=== PATIENT | female | born 1945 | race Caucasian/White ===

== ENCOUNTER 2022-06-14 10:16 | Outpatient (CLI) | payer MEDICARE, SELFPAY ==
--- NOTE | ~2022-06-14 | XR_ITS ---
EXAMINATION: XR chest 2V DATE: 06/14/2022 10:40 INDICATION: Chronic cough and chest heaviness TECHNIQUE: PA and lateral views of the chest were obtained. COMPARISON: None FINDINGS: Mild biapical pleural-parenchymal scarring. Left paracardial fat pad at the anterior right lung base. There are few small calcified pulmonary nodules in the bilateral lower lung zones consistent with ol d granulomatous disease. No other airspace opacities, pulmonary edema, pleural effusion or pneumothor ax. Heart size is normal. Moderate cervical and thoracic spondylosis. IMPRESSION: 1. No acute cardiopulmonary disease. Reviewed, dictated and finalized at location L.
== END 2022-06-14 10:17 | disposition home or self-care (01) ==
PROVIDERS: PCP Family Medicine; Visit Provider Nurse Practitioner Family
DX: R05.3 Chronic cough (principal)
CPT/HCPCS: 71046

== ENCOUNTER 2022-09-14 08:13 | Outpatient (CLI) | payer MEDICARE, SELFPAY ==
--- NOTE | 2022-09-14 11:14 | WPDPFTINT ---
PFT Procedure Performed PFT Procedure Performed Spirometry with Pre/Post Bronchodilator Plethysmography (Lung Vol) Diffusing Cap (DLCO) Flow Vol Loop PFT Interpretation Lung volumes were measured with the body plethysmography method. Lung volumes are unremarkable. Spirometry showed normal expiratory flow rates and a normal FEV1 to FVC ratio 76%. Following administration of a bronchodilator there was no significant increase in expiratory flow rates. Lung diffusion capacity is within the normal range at 85% predicted. The flow-volume loop is unremarkable. Impression: Spirometry, lung volumes, and lung diffusion capacity all within the normal range
== END 2022-09-14 08:14 | disposition home or self-care (01) ==
PROVIDERS: PCP Family Medicine; Visit Provider Nurse Practitioner Family
DX: R05.3 Chronic cough (principal)
CPT/HCPCS: 94060; 94726; 94729

== ENCOUNTER 2022-12-21 10:05 | Outpatient (CLI) | payer MEDICARE, SELFPAY ==
[2022-12-21 11:17] LABS: Alanine Aminotransferase 27 U/L (6-35); Albumin Level 4.3 g/dL (3.5-5.1); Alkaline Phosphatase 64 U/L (38-126); Anion Gap 5 mmol/L (8-16); Aspartate Amino Transferase 27 U/L (14-36); Bilirubin,Total 0.5 mg/dL (0.2-1.3); Blood Urea Nitrogen 13 mg/dL (7-17); Calcium 9.2 mg/dL (8.4-10.2); Carbon Dioxide 33 mmol/L (22-30); Chloride 101 mmol/L (98-107); Estimated Glomerular Filt Rate 54; Glucose 104 mg/dL (65-110); Potassium 4.3 mmol/L (3.4-5.0); Sodium 139 mmol/L (137-145)
[2022-12-21 11:38] LABS: Vitamin D 25 Hydroxy 68.8 ng/mL
== END 2022-12-21 10:06 | disposition home or self-care (01) ==
LOC: ANHLAB 10:07
PROVIDERS: PCP Family Medicine; Visit Provider Nurse Practitioner Family
DX: E53.8 Deficiency of other specified B group vitamins (principal); E78.2 Mixed hyperlipidemia; R73.09 Other abnormal glucose; Z79.899 Other long term (current) drug therapy; E55.9 Vitamin D deficiency, unspecified
CPT/HCPCS: 36415; 80053; 82306; 82607

== ENCOUNTER 2023-05-07 08:11 | Outpatient (CLI) | payer MEDICARE, SELFPAY ==
--- NOTE | ~2023-05-07 | MM_ITS ---
EXAMINATION: MM screening reed BI w debra HISTORY: Screening mammogram TECHNIQUE: Craniocaudal and mediolateral oblique 3-D tomosynthesis images were obtained and synthetic 2-D images were generated. CAD analysis was submitted and interpreted. COMPARISON: No prior mammogram is available for comparison at this institution. BREAST PARENCHYMAL COMPOSITION: There are scattered areas of fibroglandular density. FINDINGS: There is a biopsy marker on the right; history of prior benign right breast biopsy. Occasional bilateral benign calcifications. There is no evidence of suspicious mass, calcification, o r architectural distortion to suggest malignancy in either breast. IMPRESSION: 1. No mammographic evidence of malignancy. 2. Recommend routine screening mammography in one year. BI-RADS Category 2: Benign finding(s). Reviewed, dictated and finalized at location A. 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
--- NOTE | ~2023-05-07 | DEXA_ITS ---
Bone Density Report Name: MARIIA LOUIS Age: 77 Sex: Female Ethnicity: White Date of : 1945 Indication: postmenopausal; screening for osteoporosis; height loss; prior fracture; Referring Provider: BENTON PABLO Study: Bone densitometry was performed. Exam Date: May 07, 2023 Accession number: [id number] Bone Density: Region BMD T-score Z-score Classification AP Spine(L1-L4) 1.060 0.1 2.6 Normal Femoral Neck (Left) 0.838 -0.1 2.1 Normal Total Hip (Left) 1.094 1.2 3.2 Normal Femoral Neck (Right) 0.839 -0.1 2.1 Normal Total Hip (Right) 1.038 0.8 2.7 Normal Total Hip Mean 1.066 1.0 3.0 Normal World Health Organization criteria for BMD impression classify patients as: Normal (T-score at or above -1.0), Osteopenia (T-score between -1.0 and -2.5), or Osteoporosis (T-score at or below -2.5). 10-year Fracture Risk: FRAX not reported because: All T-scores for Spine Total, Hip Total, Femoral Neck at or above -1.0 Clinical Information Provided by Patient: Has had a low trauma fracture Has used the following medications: Vitamin D, Calcium Patient maximum height was 64 Menopause Age: 50 Drinks caffeinated beverages Onset of menses at age 12 Number of children 5 Impression: The patient has normal bone mass. The patient has risk factors, including: previous fracture. Discussion: LOW RISK OF FRACTURE; BONE DENSITY IS WELL ABOVE THE MINIMUM DESIRABLE LEVEL AND ABOVE AVERAGE FOR AGE AND SEX AT ALL SKELETAL SITES TESTED. This person's bone density is above expected limits for age and sex. This is rarely clinically significant, but should be pursued if there are significant musculoskeletal complaints. The patient should follow a healthful lifestyle (good nutrition with adequate calcium and vitamin D, and appropriate weight-bearing exercise). Follow-Up: Consider repeating this study in 5 years or sooner if there is some new clinical indication. Reported by: ROGERIO on 05/07/2023 8:56:00 AM. Reviewed, dictated and finalized at location A. [facility]
== END 2023-05-07 08:12 | disposition home or self-care (01) ==
PROVIDERS: PCP Family Medicine; Visit Provider Nurse Practitioner Family
DX: Z12.31 Encounter for screening mammogram for malignant neoplasm of breast (principal); Z78.0 Asymptomatic menopausal state
CPT/HCPCS: 77063; 77067; 77080

== ENCOUNTER 2023-08-01 10:30 | Outpatient (CLI) | payer MEDICARE, SELFPAY ==
[2023-08-01 10:53] LABS: Basophils Percent Auto 0.8 % (0.2-1.2); Eosinophils Absolute Auto 0.1 K/mm3 (0-0.3); Eosinophils Percent Auto 2.1 % (0-4.4); Hematocrit 38.8 % (37.0-47.0); Hemoglobin 12.5 g/dL (12.0-15.0); Immature Granulocyte Absolute 0.02 K/mm3 (0.00-0.031); Immature Granulocyte Percent A 0.4 % (0-0.5); Lymphocytes Absolute Auto 1.99 K/mm3 (0.9-3.2); Lymphocytes Percent Auto 38.8 % (18.3-44.2); Mean Corpuscular HGB Conc 32.2 g/dl (32-36); Mean Corpuscular Hemoglobin 29.4 pg (26-34); Mean Corpuscular Volume 91.3 fl (80-100); Mean Platelet Volume 8.8 fl (7.4-10.4); Monocytes Absolute Auto 0.5 K/mm3 (0.1-0.6); Monocytes Percent Auto 9.2 % (2.6-8.5); Neutrophils Absolute Auto 2.5 K/mm3 (1.3-6.7); Neutrophils Percent Auto 48.7 % (45.5-73.1); Platelet Count Result 240 k/mm3 (150-375); Red Blood Count 4.25 M/mm3 (4.2-5.4); Red Cell Distribution Width 13.5 % (11.5-14.5); White Blood Count 5.1 K/mm3 (4.5-10.0)
== END 2023-08-01 10:31 | disposition home or self-care (01) ==
LOC: ANHLAB 10:33
PROVIDERS: PCP Family Medicine; Visit Provider Nurse Practitioner Family
DX: R06.09 Other forms of dyspnea (principal)
CPT/HCPCS: 36415; 85025

== ENCOUNTER 2023-08-19 08:18 | Outpatient (CLI) | payer MEDICARE, SELFPAY ==
--- NOTE | 2023-08-19 08:24 | ECHO_ITS ---
Patient Info Name: Katherine Morgan Age: 77 years : 1945 Gender: Female Ht: 63 in Wt: 186 lbs BSA: 1.97 m2 HR: 65 bpm BP: 139 / 85 mmHg Technical Quality: Good Exam Date: 08/19/2023 8:34 AM Exam Location: Echo Lab Patient Status: Outpatient Admit Date: 08/19/2023 Staff Ordering Physician: Bryce Underwood APRN Cooling Tower Technician: Caridad Rivera RDCS Attending Provider: Bryce Underwood APRN Referring Physician: Kj DALLAS; Exam Type: CA echo doppler color flow Study Info Indications R06.09 - Other forms of dyspnea Complete two-dimensional, color flow and Doppler transthoracic echocardiogram is performed. Strain analysis performed. Summary 1. Complete two-dimensional, color flow and Doppler transthoracic echocardiogram is performed. 2. Left ventricular chamber dimension is normal. 3. Left ventricular systolic function is normal, estimated at 65-70%. 4. The left ventricular diastolic function is grade II diastolic dysfunction. 5. E/e' 12 is mildly elevated. 6. Global longitudinal strain is normal at -18.7%. 7. Left atrial chamber dimension is mildly enlarged. 8. There is mild aortic valve regurgitation. 9. The mitral valve has mildly calcified annulus. 10. There is mild mitral valve regurgitation. 11. No pulmonary hypertension, estimated pulmonary arterial systolic pressure is 33 mmHg. 12. There is trace pulmonic regurgitation. Left Ventricle E/e' 12 is mildly elevated. Global longitudinal strain is normal at -18.7%. Left ventricular chamber dimension is normal. Left ventricular systolic function is normal, estimated at 65-70%. The left ventricular diastolic function is grade II diastolic dysfunction. Right Ventricle Right ventricular systolic function is normal and with normal TAPSE 2.8 cm. Right ventricular chamber dimension is normal. Left Atria Left atrial chamber dimension is mildly enlarged. Right Atria Right atrial chamber dimension is normal. Aortic Valve The aortic valve is trileaflet. There is no aortic valve stenosis. There is mild aortic valve regurgitation. Pulmonic Valve There is trace pulmonic regurgitation. Mitral Valve The mitral valve has mildly calcified annulus. There is no mitral valve stenosis. There is mild mitral valve regurgitation. Tricuspid Valve There is no tricuspid valve regurgitation. No pulmonary hypertension, estimated pulmonary arterial systolic pressure is 33 mmHg. Pericardium/Pleural There is no pericardial effusion. Inferior Vena Cava Normal inferior vena cava with >50% collapse upon inspiration consistent with normal right atrial pressure, 5 mmHg. Aorta The aortic root size at the sinus of Valsalva is normal. Left Ventricular Outflow Tract Name Value Normal LVOT 2D LVOT Diameter 1.9 cm LVOT Doppler LVOT Peak Gradient 4 mmHg LVOT Mean Gradient 2 mmHg LVOT VTI 26 cm LVOT VTI/AV VTI Ratio 0.9 LVOT Stroke Volume 74 ml LVOT CO 4.4 l/min LVOT CI 2.2 l/min/m2 Pulmonic Valve
== END 2023-08-19 08:19 | disposition home or self-care (01) ==
LOC: ANHCARD 08:19
PROVIDERS: PCP Family Medicine; Visit Provider Nurse Practitioner Family
DX: R06.09 Other forms of dyspnea (principal); I51.89 Other ill-defined heart diseases; I34.81 Nonrheumatic mitral (valve) annulus calcification; I34.0 Nonrheumatic mitral (valve) insufficiency
CPT/HCPCS: 93306

== ENCOUNTER 2023-09-18 09:35 | Day surgery (SDC) | payer MEDICARE, SELFPAY ==
[2023-09-05 09:52] VITALS: BMI 32.6
[2023-09-18 10:11] VITALS: BP 132/87; PULSE 70; RESP 18; TEMP 36.6; O2SAT 100; BMI 31.4
[2023-09-18] MEDS: LACTATED RINGERS 1,000 ML 150 ML IV CONT (10:23)
--- NOTE | 2023-09-18 10:27 | WPDHPUPDATE1 ---
History and Physical Update Update Date/Time: 09/18/23 10:27 History and Physical has been reviewed, including an updated exam of the patient. There are NO changes in the patient's condition. Risks, benefits, and alternatives have been discussed and questions answered. Patient agrees to proceed with procedure.
--- NOTE | 2023-09-18 10:59 | WPDANESEPPF ---
Anes - Initial Pre Proc Eval Procedure: Operation Date: 09/18/23 11:30 Proposed Procedures p Esophagogastroduodenoscopy - Sincere Rios MD s Diagnostic Colonoscopy - Sincere Rios MD Date/Time: 09/18/23 10:59 Surgeon: Sincere Rios MD Pre Op Diagnosis: Gerd wo Esophagitis,FM HX.Malignant Neoplasm Diges Patient Data Age: 77 Gender: F Height: 1.61 m Weight: 81.6 kg Last Vital Signs Temp 36.6 C 09/18/23 10:11 Pulse 70 09/18/23 10:11 Resp 18 09/18/23 10:11 BP 132/87 09/18/23 10:11 Pulse Ox 100 09/18/23 10:11 O2 Del Method Room Air 09/18/23 10:11 Allergies Allergy/AdvReac Type Severity Reaction Status Date / Time No Known Allergies Allergy Verified 09/18/23 10:04 Home Medications Medication Instructions Recorded Confirmed Type aspirin 81 mg tablet,delayed 81 mg PO .QD 04/16/22 09/18/23 History release (Adult Low Dose Aspirin) atorvastatin 10 mg tablet 10 mg PO .QD 04/16/22 09/18/23 History escitalopram oxalate 20 mg tablet 20 mg PO .QD 04/16/22 09/18/23 History (Lexapro) meclizine 25 mg tablet 25 mg PO TID PRN dizziness #30 tabs 06/12/22 09/18/23 Rx fluticasone propionate 50 1 spray intranasal DAILY 12/13/22 09/18/23 History mcg/actuation nasal spray,suspension azelastine 137 mcg (0.1 %) nasal 1 spray intranasal Q12H #30 mL 04/05/23 09/18/23 Rx spray aerosol zolpidem 5 mg tablet 5 mg PO QHS #30 tabs 07/22/23 09/18/23 Rx gabapentin 300 mg capsule 300 mg PO QHS #90 caps 07/31/23 09/18/23 Rx alprazolam 0.25 mg tablet 0.25 mg PO BID PRN anxiety #60 tabs 08/21/23 09/18/23 Rx esomeprazole magnesium 40 mg 40 mg PO DAILY #30 caps 08/28/23 09/18/23 Rx capsule,delayed release (Nexium) linaclotide 72 mcg capsule 72 mcg Capsule#2 Samples 08/28/23 09/18/23 Sample (Saul) Vitamin C 1 tab-cap PO DIRECTED 09/12/23 09/18/23 History Vitamin D3 1 tab-cap PO DIRECTED 09/12/23 09/18/23 History Patient hx anesthesia problems: none Family hx anesthesia problems: none Results Review: All pre-operative results and documents have been reviewed as part of the pre-operative evaluation. [facility] Past Medical History Medical History Anxiety BMI 31.0-31.9,adult Chronic GERD Colitis Establishing care with new doctor, encounter for Headache Mixed hyperlipidemia Numbness and tingling in right hand Surgical History Surgical History History of shoulder surgery History of tubal ligation Family History Family History Father Cerebrovascular accident Mother Heart disease Carcinoma of colon Sibling Cancer MVC (motor vehicle collision) Sibling No problems noted. Other Asthma Depression Diabetes mellitus Social History Social History Smoking status: Never smoker Second hand tobacco smoke exposure: Yes Alcohol intake: current Drinks per week: 2 Substance use: never Substance use type: does not use Do You Feel Safe in your Home?: Yes Lack of Transportation: No Lack of Food: Never True Current Housing: I Have Housing Concerned About Future Housing: No Difficulty Paying Gas/Electric Bills: YES Difficulty Paying for Meds: No Currently Unemployed: No Education: High School Diploma/GED Difficulty w/ Childcare or Family Care: No Living arrangements: with family Occupation/Education: retired 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
[2023-09-18 11:39] VITALS: BP 108/62; PULSE 64; RESP 14; O2SAT 97
[2023-09-18 11:49] VITALS: BP 122/69; PULSE 57; RESP 16; O2SAT 97
--- NOTE | 2023-09-18 11:50 | WPDANESPN ---
Anes - Prog Note Post-Op Date/Time: 09/18/23 11:50 Cardiovascular status: normal Respiratory status: normal Airway patency: baseline Mental status: baseline Post-Op hydration status: normal Vital Signs: Last Vital Signs Temp 36.6 C 09/18/23 10:11 Pulse 57 L 09/18/23 11:49 Resp 16 09/18/23 11:49 BP 122/69 09/18/23 11:49 Pulse Ox 97 09/18/23 11:49 O2 Del Method Room Air 09/18/23 11:49 Pain Score (VAS): 0/10 I/O: Intake & Output 09/17/23 09/18/23 09/18/23 23:59 07:59 15:59 Intake Total 600 Balance 600 Patient Feedback: Patient satisfied with anesthetic care.
[2023-09-18 11:59] VITALS: BP 149/70; PULSE 55; RESP 16; O2SAT 100
== END 2023-09-18 12:07 | disposition home or self-care (01) ==
PROVIDERS: PCP Family Medicine; Visit Provider Internal Medicine Gastroenterology
PROC: 0DJ08ZZ Inspection of Upper Intestinal Tract, Via Natural or Artificial Opening Endoscopic (ICD-10-PCS; CPT 43235; principal; 2023-09-18 11:30)
PROC: 0DJD8ZZ Inspection of Lower Intestinal Tract, Via Natural or Artificial Opening Endoscopic (ICD-10-PCS; CPT 45378; 2023-09-18 11:30)
DX: Z80.0 Family history of malignant neoplasm of digestive organs (principal); D12.2 Benign neoplasm of ascending colon; K57.30 Diverticulosis of large intestine without perforation or abscess without bleeding; K64.8 Other hemorrhoids; K21.9 Gastro-esophageal reflux disease without esophagitis
CPT/HCPCS: 45380; 43235

== ENCOUNTER 2023-09-19 06:59 | Outpatient (NON) | payer MEDICARE, SELFPAY | END 2023-09-19 07:00 | disposition home or self-care (01) | LOC: ANHLAB 07:00 | PROVIDERS: PCP Family Medicine; Visit Provider Internal Medicine Gastroenterology | DX: K63.5 Polyp of colon (principal); Z80.0 Family history of malignant neoplasm of digestive organs | CPT/HCPCS: 88305 ==

== ENCOUNTER 2024-01-21 12:23 | Outpatient (NON) | payer MEDICARE, SELFPAY ==
[2024-01-21 13:47] LABS: Toxigenic C. Diff NEGATIVE (NEGATIVE)
== END 2024-01-21 12:24 | disposition home or self-care (01) ==
LOC: ANHLAB 12:23
PROVIDERS: PCP Family Medicine; Visit Provider Nurse Practitioner Family
DX: R19.7 Diarrhea, unspecified (principal)
CPT/HCPCS: 82653; 83993; 87045; 87427; 87449; 87493

== ENCOUNTER 2024-05-15 10:08 | Outpatient (CLI) | payer OTHER, SELFPAY ==
--- OUTSIDE RECORDS SUMMARY | 2024-05-15 10:26 | XMS_ITS | Clinical Summary ---
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 Role Phone Unavailable Primary Care Provider Unavailabl e Social History Tobacco Use Types Packs/Day Years Used Date Smoking Tobacco: Never Assessed Comments Unknown Sex and Gender Information Value Date Recorded Sex Assigned at Not on file Legal Sex Female 5:30 PM CDT Gender Identity Not on file Sexual Orientation Not on file Plan of Treatment Health Maintenance Due Date Last Done Comments PHQ-2 (Physician [place]) 1957 Hepatitis C 12/18/1963 DTaP, Tdap and Td Vaccines ( 1 - Tdap) 1964 Zoster Vaccines (1 of 2) 12/18/1995 Annual Medicare Wellness Visit 2010 Dexa Scan (General) 2010 Pneumococcal Vaccine: 65+ Ye ars (1 of 1 - PCV) 2010 RSV Immunization or 60+ Years (1 - 1-dose 75+ series) 2020 COVID-19 Vaccine ( - 2023-2 5 season) 2023 Influenza Adult (#1) 2023 PHQ-2 (Physician [place]) 04/01/2024 Meningococcal B Vaccine Aged Out No l onger eligible based on patient's age to complete this topic Meningococcal Vaccine Aged Out No ruth daniele eligible based on patient's age to complete this topic RSV Immunizations Under 20 Months Aged Out No longer eligible based on patient's age to complete this topic Insurance [facility]
--- OUTSIDE RECORDS SUMMARY | 2024-05-15 10:26 | XMS_ITS | Clinical Summary ---
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 Name Role Phone Unavailable Primary Care Provider Unavailabl e Social History Tobacco Use Types Packs/Day Years Used Date Smoking Tobacco: Never Assessed Comments Unknown Sex and Gender Information Value Date Recorded Sex Assigned at Not on file Legal Sex Female 8:12 AM CDT Gender Identity Not on file Sexual Orientation Not on file Plan of Treatment Health Maintenance Due Date Last Done Comments DEXA Bone Density 1945 Hepatitis C Virus (HCV) Screening 1945 TdaP Immunization 1945 Pneumococcal Immunization (5 0+ years) (2 of 2 - PCV) 03/03/2013 03/03/2012 Zoster Immunization (2 of 3) 04/04/2016 02/08/2016 Respiratory Syncytial Virus (RSV) Immunization (Adult) (1 - 1-dose 75+ series) 2020 Influenza Immunization (#1) 12/01/202301/01, 01/07/2017, 01/14/2014 SARS-COV-2 Immunization ( season) 2023 06/04/2020, 05/12/2020 Hepatitis B Immunization Aged Out No longer eligible based on patient's age to complete this topic Meningococcal Immunization (ACWY) Aged Out No longer eligible b ased on patient's age to complete this topic Rotavirus Immunization Aged Out No lo nger eligible based on patient's age to complete this topic
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
--- OUTSIDE RECORDS SUMMARY | 2024-05-15 10:27 | XMS_ITS | Patient Health Summary ---
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 DERMATOPATHOLOGY LABORATORY Embedded Images 3 1:05 PM CDT DERMATOPATHOLOGY LABORATORY Pathology/Cytolog y TISSUE SPECIMEN FROM SKIN / Unknown 10/10/2022 10/12/2022 8:56 AM CDT Violeta Dixon PA-C LAB - PATHOL OGY/CYTOLOGY ORDERABLES DERMATOPATHOLOGY LABORATORY [facility] - Department of Dermatology [address], [address] [phone] * CARDIAC EVENT MONITOR (03/17/2018) Zeferino Rogers Jr., MD CARDIAC SERVICE S ORDERABLES [facility] Care Teams Airfield Engineer Officer Relationship Specialty [place] [address] [facility] [address] [place] [address] PCP - General Internal Medicine 02/12/18 [place] [address] [address] Internal Medicine 02/12/18
--- OUTSIDE RECORDS SUMMARY | 2024-05-15 10:27 | XMS_ITS | Encounter Summary ---
Author Organization [facility] Address [address] [place] [address] Care Team Providers Care Sighter Name Role Phone Dana Martinez MD Unavailable [phone] Dana Martinez MD Primary Care Provider [phone] Encounter Details Date Type Department Care Team (Late st Contact Info) Description 10/10/2022 Lab Requisition [facility] - DermPath Lab [address] [place] [address] Violeta Dixon PA-C [address] [place] [address] Neoplasm of uncertain behavior of skin Social History Tobacco Use Types Packs/Day Years Used Date Smoking Tobacco: Never Assessed Sex and Gender Information Value Date Recorded Sex Assigned at Not on file Gender Identity Not on file Sexual Orientation Not on file documented as of this encounter Plan of Treatment Not on file documented as of this encounter Procedures Procedure Name Priority Date/Time Associated Diagnosis Comments DERMATOPATHOLOGY Routine 10/10/2022 12:0 0 AM CDT Neoplasm of uncertain behavior of skin documented in this encounter Results * DERMATOPATHOLOGY (10/10/2022 12:00 AM CDT) Case Report Dermatopathology Report Case: [id number] Authorizing Provider: Zack Violetaericka Boggs, Collected: 10/10/2022 12:00 AM ROXANNE Ordering Location: [facility] Derm[facility] Lab Received: 10/12/2022 08:56 AM Pathologist: Nati Ko MD Specimen: Skin, nasal root 1:05 PM CDT DERMATOPATHOLOGY LABORATORY Final Diagnosis Specimen A. SKIN, nasal root: HYPERPLASTIC (HYPERTROPHIC) ACTINIC KERATOSIS; EXTENDING TO THE BASE OF THE SPECIMEN (L57.0) (see microscopic description and comment) 1:05 PM CDT DERMATOPATHOLOGY LABORATORY Clinical History Basal cell carcinoma vs Actinic keratosis 1:05 PM CDT DERMATOPATHOLOGY LABORATORY Gross Description Specimen A: Received is one formalin filled container labeled with the patient's name and designated nasal root. The specimen consists of a shave biopsy measuring 7x5x1 mm. Jar 0. 1:05 PM CDT DERMATOPATHOLOGY LABORATORY Microscopic Description Specimen A. SKIN, nasal root: There is hyperkeratosis alternating with parakeratosis. There is epidermal hyperplasia with disorderly maturation of keratinocytes with nuclear pleomorphism confined to the lower half of the epidermis. This process extends to the base of the specimen. COMMENT: A squamous cell carcinoma cannot be ruled out. 1:05 PM CDT DERMATOPATHOLOGY LABORATORY Disclaimer An external and internal positive and negative controls are appropriate for the histochemical, immunohistochemical and immunofluorescence stain(s) in this case (if any), except where stated explicitly. The performance characteristics of the stain(s) cited in this report were developed and its performance characteristic determined by the Dermatopathology Laboratory at [facility], directed by Dr. Nirav Goldman. These tests need not be, and therefore are not, approved by the [place] Food and Drug Administration. The tests are used for clinical purposes. Billing Codes Specimen Charges Stain Charges 72207 1 1:05 PM CDT DERMATOPATHOLOGY LABORATORY Embedded Images 1:05 PM CDT DERMATOPATHOLOGY LABORATORY Pathology/Cytolog y TISSUE SPECIMEN FROM SKIN / Unknown 10/10/2022 10/12/2022 8:56 AM CDT Violeta Dixon PA-C LAB - PATHOL OGY/CYTOLOGY ORDERABLES DERMATOPATHOLOGY LABORATORY [facility] - Department of Dermatology [facility] Medicine [address] [place] [address], [address] [phone] documented in this encounter Visit Diagnoses Diagnosis Neoplasm of uncertain behavior of skin documented in this encounter Care Teams Sighter Relationship Specialty [place] [address] [facility] [address] [place] [address] PCP - General Internal Medicine 02/12/18 [place] [address] [facility] [address] [place] [address] Internal Medicine 02/12/18 documented as of this encounter
--- OUTSIDE RECORDS SUMMARY | 2024-05-15 10:27 | XMS_ITS | Clinical Summary ---
Author Organization [facility] Address [address] [place] [phone] Phone Care Team Providers Care Pruner Name Role Phone Dana Martinez MD Primary Care Provider [phone] Allergies No known active allergies Social History Tobacco Use Types Packs/Day Years Used Date Smoking Tobacco: Never Assessed Comments Unknown Sex and Gender Information Value Date Recorded Sex Assigned at Not on file Legal Sex Female 9:55 PM CDT Gender Identity Not on file Sexual Orientation Not on file Last Filed Vital Signs Vital Sign Reading Time Taken Comments Blood Pressure - - Pulse - - Temperature - - Respiratory Rate - - Oxygen Saturation - - Inhaled Oxygen Concentration - - Weight 81.6 kg (180 lb) 09/04/2021 9:23 AM CDT Height 162.6 cm (5' 4 ) 09/04/2021 9:23 AM CDT Body Mass Index 30.9 09/04/2021 9:23 AM CDT Plan of Treatment Health Maintenance Due Date Last Done Comments DTAP/TDAP/TD VACCINES (1 - Tdap) 1964 ZOSTER VACCINE (1 of 2) 12/18/1995 OSTEOPOROSIS SCREENING 2010 PNEUMOCOCCAL VACCINE 65+ YEA RS (2 of 2 - PCV) 03/03/2013 03/03/2012 RSV VACCINE (60+ or ) (1 - 1-dose 75+ series) 2020 INFLUENZA VACCINE (#1) 2023 , 01/07/2017, 02/08/2016, Additional history exists [facility] Care Teams Pruner Relationship Specialty [place] [address] [address] PCP - General Internal Medicine 02/13/18
--- OUTSIDE RECORDS SUMMARY | 2024-05-15 10:27 | XMS_ITS | Referral Summary ---
Author Organization [facility] Address [address] [place] [address] Care Team Providers Care Patient Registration Supervisor Name Role Phone Dana Martinez MD Unavailable [phone] Dana Martinez MD Primary Care Provider [phone] Source Comments [facility],non-owned Affiliates and Associated Physician Practices is amultiple site organization consisting of ambulatory clinics and hospital sitesin [place], [place], [place] and [place]. This disclosure is being madepursuant to the Care Everywhere program and may not contain all information available regarding this patient. Last updated 17.[facility] Encounters Date Type Department Care Team Description 04/01/2024 2:49 PM GEOSCIENCE PROFESSOR - 04/01/2024 8:02 PM [facility] Emergency [facility] EMERGENCY DEPARTMENT [address] [place] [address] Rylee Zuluaga MD Left leg pain (Primary Dx); Trauma Discharge Disposition: Home or Self Care from Last 3 Months Allergies No known active allergies Medications * [...] Comments Blood Pressure 147/88 04/01/2024 2:51 PM GEOSCIENCE PROFESSOR Pulse 73 04/01/2024 2:53 PM GEOSCIENCE PROFESSOR Temperature 36.2 C (97.2 F) 04/01/2024 2:50 PM GEOSCIENCE PROFESSOR Respiratory Rate 15 04/01/2024 2:53 PM GEOSCIENCE PROFESSOR Oxygen Saturation 97% 04/01/2024 2:53 PM GEOSCIENCE PROFESSOR Inhaled Oxygen Concentration - - Weight 81.6 kg (180 lb) 04/01/2024 2:50 PM GEOSCIENCE PROFESSOR Height 172.7 cm (5' 8 ) 04/01/2024 2:50 PM GEOSCIENCE PROFESSOR Body Mass Index 27.37 04/01/2024 2:50 PM GEOSCIENCE PROFESSOR Plan of Treatment Not on file Procedures Procedure Name Priority Date/Time Associated Diagnosis Comments XR TIBIA FIBULA LEFT 2VW STAT 04/01/2024 3:27 PM GEOSCIENCE PROFESSOR Trauma XR ANKLE LEFT 3VW OR MORE STAT 04/01/2024 3:27 PM GEOSCIENCE PROFESSOR Trauma EKG 12-LEAD STAT 04/01/2024 3:18 PM GEOSCIENCE PROFESSOR Trauma CT LUMBAR SPINE WO CONTRAST STAT 04/01/2024 3:17 PM GEOSCIENCE PROFESSOR Trauma CT THORACIC SPINE WO CONTRAST STAT 04/01/2024 3:17 PM GEOSCIENCE PROFESSOR Trauma CT CHEST ABDOMEN PELVIS W CONT STAT 04/01/2024 3:17 PM GEOSCIENCE PROFESSOR Trauma CT CERVICAL SPINE WO CONTRAST STAT 04/01/2024 3:17 PM GEOSCIENCE PROFESSOR Trauma CT HEAD WO CONTRAST STAT 04/01/2024 3 :17 PM GEOSCIENCE PROFESSOR Trauma TYPE + SCREEN PANEL STAT 04/01/2024 3 :15 PM GEOSCIENCE PROFESSOR PTT [facility] STAT 04/01/2024 3:15 PM GEOSCIENCE PROFESSOR PT-INR [facility] STAT 04/01/2024 3:15 PM GEOSCIENCE PROFESSOR LIPASE BLOOD STAT 04/01/2024 3:15 PM GEOSCIENCE PROFESSOR CBC W AUTO DIFFERENTIAL STAT 04/01/2024 3:15 PM GEOSCIENCE PROFESSOR BASIC METABOLIC PANEL (CALCIUM TOTAL) STAT 04/01/2024 3:15 PM GEOSCIENCE PROFESSOR ALCOHOL ETHYL BLOOD STAT 04/01/2024 3 :15 PM GEOSCIENCE PROFESSOR XR PELVIS 1 OR 2VW STAT 04/01/2024 3: 15 PM GEOSCIENCE PROFESSOR Trauma XR CHEST 1VW PORTABLE STAT 04/01/2024 3:14 PM GEOSCIENCE PROFESSOR Trauma from Last 3 Months Results * XR Tibia Fibula Left 2Vw (04/01/2024 3:27 PM GEOSCIENCE PROFESSOR) Anatomical Region Laterality Modality Lower Extremity Digital Radiogra phy 04/01/2024 5:01 PM GEOSCIENCE PROFESSOR Impressions 04/01/2024 8:32 PM GEOSCIENCE PROFESSOR IMPRESSION: No acute tibial or fibular fracture identified. > Dictated by Gerardo Manzo MD (vice president sales). I, Vito Roldan MD have personally reviewed and interpreted this examination/study. > Interpreting Provider: Vito Roldan MD on 04/01/2024 8:32 PM Narrative 04/01/2024 8:32 PM GEOSCIENCE PROFESSOR EXAMINATION: XR TIBIA FIBULA LEFT 2VW DATE/TIME OF EXAM: 04/01/2024 3:27 PM, LOCATION [facility] HISTORY: T14.90XA: Trauma trauma COMPARISON: No prior study is available for comparison. FINDINGS: No acute fracture or dislocation. Bone density and texture are normal. No soft tissue swelling is present. Procedure Note Vito Roldan MD - 04/01/2024 EXAMINATION: XR TIBIA FIBULA LEFT 2VW DATE/TIME OF EXAM: 04/01/2024 3:27 PM, LOCATION [facility] HISTORY: T14.90XA: Trauma trauma COMPARISON: No prior study is available for comparison. FINDINGS: No acute fracture or dislocation. Bone density and texture are normal.No soft tissue swelling is present. IMPRESSION: No acute tibial or fibular fracture identified. > Dictated by Gerardo Manzo MD (vice president sales). Vito Montejo MD have personally reviewed and interpreted this examination/study. > Interpreting Provider: Vito Roldan MD on 04/01/2024 8:32 PM José Sauer MD DIAGNOSTIC IMAGING O RDERABLES * XR Ankle Left 3Vw or More (04/01/2024 3:27 PM GEOSCIENCE PROFESSOR) Anatomical Region Laterality Modality Lower Extremity Digital Radiogra phy 04/01/2024 5:00 PM GEOSCIENCE PROFESSOR Impressions 04/01/2024 8:32 PM GEOSCIENCE PROFESSOR IMPRESSION: No acute fracture or dislocation identified. Report dictated by Gerardo Manzo MD (vice president sales). Vito Montejo MD have personally reviewed and interpreted this examination/study. > Interpreting Provider: Vito Roldan MD on 04/01/2024 8:32 PM Narrative 04/01/2024 8:32 PM GEOSCIENCE PROFESSOR PROCEDURE: XR ANKLE LEFT 3VW OR MORE, DATE/TIME OF EXAM: 04/01/2024 3:27 PM, LOCATION [facility] INDICATION: T14.90XA: Trauma COMPARISON: None TECHNIQUE: [...] DATE/TIME OF EXAM: 04/01/2024 3:27 PM, LOCATION [facility] INDICATION: T14.90XA: Trauma COMPARISON: None TECHNIQUE: [...] dictated by Gerardo Manzo MD (vice president sales). IVito MD have personally reviewed and interpreted this examination/study. > Interpreting Provider: Vito Roldan MD on 04/01/2024 8:32 PM José Sauer MD DIAGNOSTIC IMAGING O RDERABLES * EKG 12-LEAD (04/01/2024 3:18 PM GEOSCIENCE PROFESSOR) Ventricular Rate 76 BPM [facility] MUSE Atrial Rate 76 BPM [facility] MUSE P-R Interval 186 ms [facility] MUSE QRS Duration ms 84 ms [facility] MUSE Q-T Interval ms 398 ms [facility] MUSE QTC Calculation (Bezet) 447 ms [facility] MUSE Calculated P [place] 77 degrees [facility] MUSE Calculated R [place] 42 degrees [facility] MUSE Calculated T [place] 63 degrees H MUSE Interpretation EKG NORMAL SINUS RHYTHM NORMAL ECG NO PREVIOUS ECGS AVAILABLE Confirmed by BELINDA LOCKETT MD ([id number]) on 04/04/2024 8:10:29 AM [facility] MUSE 04/01/2024 3:18 PM GEOSCIENCE PROFESSOR 04/04/2024 8:10 AM GEOSCIENCE PROFESSOR José Sauer MD ECG ORDERABLES [facility] MUSE * CT CHEST ABDOMEN PELVIS W CONT - Abdomen-pelvis trauma, blunt or penetrating (04/01/2024 3:17 PM GEOSCIENCE PROFESSOR) Anatomical Region Laterality Modality Chest, Abdomen, Pelvis Computed Tomography 04/01/2024 3:37 PM GEOSCIENCE PROFESSOR Impressions 04/01/2024 6:47 PM GEOSCIENCE PROFESSOR IMPRESSION: 1.Mild soft tissue contusion noted in [...] Dictated by Patrice Noble MD (vice president sales). I, Bambi Madera MD have personally reviewed and interpreted this examination/study. > Interpreting Provider: Bambi Madera MD on 04/01/2024 6:47 PM Narrative 04/01/2024 6:47 PM GEOSCIENCE PROFESSOR PROCEDURE: CT CHEST ABDOMEN PELVIS W CONT, DATE/TIME OF EXAM: 04/01/2024 3:18 PM, LOCATION [facility] INDICATION: Trauma COMPARISON: None. TECHNIQUE: CT [...] DATE/TIME OF EXAM: 04/01/2024 3:18 PM, LOCATION [facility] INDICATION: Trauma COMPARISON: None. TECHNIQUE: CT [...] Dictated by Patrice Noble MD (vice president sales). Bambi Montejo MD have personally reviewed and interpreted this examination/study. > Interpreting Provider: Bambi Madera MD on 04/01/2024 6:47PM José Sauer MD CT ORDERABLES * CT LUMBAR SPINE WO CONTRAST - T/L-spine trauma, Spine fracture (04/01/2024 3:17 PM GEOSCIENCE PROFESSOR) Anatomical Region Laterality Modality Spine Computed Tomogra phy 04/01/2024 3:39 PM GEOSCIENCE PROFESSOR Impressions 04/01/2024 11:41 PM GEOSCIENCE PROFESSOR IMPRESSION: 1.No acute intracranial hemorrhage, midline shift, or significant mass effect. 2.No evidence of acute fracture in the cervical, thoracic, or lumbar spine. 3.The separately dictated same day CT chest, abdomen and pelvis contain additional intrathoracic and intra-abdominal findings. Report dictated by Gerardo Manzo MD (vice president sales). Mery Montejo MD have personally reviewed and interpreted this examination/study. > Interpreting Provider: Mery Perez MD on 04/01/2024 11:41 PM Narrative 04/01/2024 11:41 PM GEOSCIENCE PROFESSOR PROCEDURE: CT HEAD WO CONTRAST, CT CERVICAL SPINE WO CONTRAST, CT LUMBAR SPINE WO CONTRAST, CT THORACIC SPINE WO CONTRAST, DATE/TIME OF EXAM: 04/01/2024 3:18 PM, LOCATION [facility] INDICATION: Trauma EXAMINATION: 1.Computed tomography (CT) [...] DATE/TIME OF EXAM: 04/01/2024 3:18 PM, LOCATION [facility] INDICATION: Trauma EXAMINATION: 1.Computed tomography (CT) [...] dictated by Gerardo Manzo MD (vice president sales). Mery Montejo MD have personally reviewed and interpretedthis examination/study. > Interpreting Provider: Mery Perez MD on 04/01/2024 11:41 PM José Sauer MD CT ORDERABLES * CT THORACIC SPINE WO CONTRAST - T/L-spine trauma, spine fracture (04/01/2024 3:17 PM GEOSCIENCE PROFESSOR) Anatomical Region Laterality Modality Spine Computed Tomogra phy 04/01/2024 3:39 PM GEOSCIENCE PROFESSOR Impressions 04/01/2024 11:41 PM GEOSCIENCE PROFESSOR IMPRESSION: 1.No acute intracranial hemorrhage, midline shift, or significant mass effect. 2.No evidence of acute fracture in the cervical, thoracic, or lumbar spine. 3.The separately dictated same day CT chest, abdomen and pelvis contain additional intrathoracic and intra-abdominal findings. Report dictated by Gerardo Manzo MD (vice president sales). Mery Montejo MD have personally reviewed and interpreted this examination/study. > Interpreting Provider: Mery Perez MD on 04/01/2024 11:41 PM Narrative 04/01/2024 11:41 PM GEOSCIENCE PROFESSOR PROCEDURE: CT HEAD WO CONTRAST, CT CERVICAL SPINE WO CONTRAST, CT LUMBAR SPINE WO CONTRAST, CT THORACIC SPINE WO CONTRAST, DATE/TIME OF EXAM: 04/01/2024 3:18 PM, LOCATION [facility] INDICATION: Trauma EXAMINATION: 1.Computed tomography (CT) [...] DATE/TIME OF EXAM: 04/01/2024 3:18 PM, LOCATION [facility] INDICATION: Trauma EXAMINATION: 1.Computed tomography (CT) [...] dictated by Gerardo Manzo MD (vice president sales). Mery Montejo MD have personally reviewed and interpretedthis examination/study. > Interpreting Provider: Mery Perez MD on 04/01/2024 11:41 PM José Sauer MD CT ORDERABLES * CT CERVICAL SPINE WO CONTRAST - C-Spine Trauma, Spine fracture (04/01/2024 3:17 PM GEOSCIENCE PROFESSOR) Anatomical Region Laterality Modality Spine Computed Tomogra phy 04/01/2024 3:39 PM GEOSCIENCE PROFESSOR Impressions 04/01/2024 11:41 PM GEOSCIENCE PROFESSOR IMPRESSION: 1.No acute intracranial hemorrhage, midline shift, or significant mass effect. 2.No evidence of acute fracture in the cervical, thoracic, or lumbar spine. 3.The separately dictated same day CT chest, abdomen and pelvis contain additional intrathoracic and intra-abdominal findings. Report dictated by Gerardo Manzo MD (vice president sales). Mery Montejo MD have personally reviewed and interpreted this examination/study. > Interpreting Provider: Mery Perez MD on 04/01/2024 11:41 PM Narrative 04/01/2024 11:41 PM GEOSCIENCE PROFESSOR PROCEDURE: CT HEAD WO CONTRAST, CT CERVICAL SPINE WO CONTRAST, CT LUMBAR SPINE WO CONTRAST, CT THORACIC SPINE WO CONTRAST, DATE/TIME OF EXAM: 04/01/2024 3:18 PM, LOCATION [facility] INDICATION: Trauma EXAMINATION: 1.Computed tomography (CT) [...] DATE/TIME OF EXAM: 04/01/2024 3:18 PM, LOCATION [facility] INDICATION: Trauma EXAMINATION: 1.Computed tomography (CT) [...] dictated by Gerardo Manzo MD (vice president sales). IMery MD have personally reviewed and interpretedthis examination/study. > Interpreting Provider: Mery Perez MD on 04/01/2024 11:41 PM José Sauer MD CT ORDERABLES * CT HEAD WO CONTRAST - Head Trauma, CSF leak, mental status changes (04/01/2024 3:17 PM GEOSCIENCE PROFESSOR) Anatomical Region Laterality Modality Head Computed Tomogra phy 04/01/2024 3:39 PM GEOSCIENCE PROFESSOR Impressions 04/01/2024 11:41 PM GEOSCIENCE PROFESSOR IMPRESSION: 1.No acute intracranial hemorrhage, midline shift, or significant mass effect. 2.No evidence of acute fracture in the cervical, thoracic, or lumbar spine. 3.The separately dictated same day CT chest, abdomen and pelvis contain additional intrathoracic and intra-abdominal findings. Report dictated by Gerardo Manzo MD (vice president sales). IMery MD have personally reviewed and interpreted this examination/study. > Interpreting Provider: Mery Perez MD on 04/01/2024 11:41 PM Narrative 04/01/2024 11:41 PM GEOSCIENCE PROFESSOR PROCEDURE: CT HEAD WO CONTRAST, CT CERVICAL SPINE WO CONTRAST, CT LUMBAR SPINE WO CONTRAST, CT THORACIC SPINE WO CONTRAST, DATE/TIME OF EXAM: 04/01/2024 3:18 PM, LOCATION [facility] INDICATION: Trauma EXAMINATION: 1.Computed tomography (CT) [...] DATE/TIME OF EXAM: 04/01/2024 3:18 PM, LOCATION [facility] INDICATION: Trauma EXAMINATION: 1.Computed tomography (CT) [...] dictated by Gerardo Manzo MD (vice president sales). I, Mery Perez MD have personally reviewed and interpretedthis examination/study. > Interpreting Provider: Mery Perez MD on 04/01/2024 11:41 PM José Sauer MD CT ORDERABLES * PTT [facility] (04/01/2024 3:15 PM GEOSCIENCE PROFESSOR) APTT 26.9 23.0 - 38.4 Seconds 04/01/2024 3:40 PM GEOSCIENCE PROFESSOR [facility] Comment:Suggested therapeuti c range for full dose I.V. unfractionated heparin therapy for venous thromboembolism is 71 to 109 seconds. Blood BLOOD SPECIMEN / Unknown Venipuncture / Unknown 04/01/2024 3:15 PM GEOSCIENCE PROFESSOR 04/01/2024 3:18 PM GEOSCIENCE PROFESSOR José Sauer MD LAB - COAGULATION OR DERABLES Performing Organization Address City/[facility]/ZIP Co de Phone Number [address] [address], [place] [phone] * PT-INR [facility] (04/01/2024 3:15 PM GEOSCIENCE PROFESSOR) PT 12.6 12.1 - 14.8 Seconds 04/01/2024 3:40 PM GEOSCIENCE PROFESSOR [facility] INR 1.0 See Comment 04/01/2024 3:40 PM GEOSCIENCE PROFESSOR [facility] Comment:The suggested therap eutic range for standard coumadin (warfarin) therapy is an INR of 2.0-3.0. For high-risk patients (Mechanical Mitral Valve Prosthesis, etc.), the suggested prophylactic therapeutic range is an INR of 2.5-3.5. Blood BLOOD SPECIMEN / Unknown Venipuncture / Unknown 04/01/2024 3:15 PM GEOSCIENCE PROFESSOR 04/01/2024 3:18 PM GEOSCIENCE PROFESSOR José Sauer MD LAB - COAGULATION OR DERABLES Performing Organization Address [facility]/ZIP Co de Phone Number [address] [address], [place] [phone] * TYPE + SCREEN PANEL (04/01/2024 3:15 PM GEOSCIENCE PROFESSOR) Antibody Screen NEG 3:56 PM GEOSCIENCE PROFESSOR [facility] B[facility]OD [facility] LAB ABO Rh B POS 04/01/2024 3:56 PM GEOSCIENCE PROFESSOR [facility] B[facility]OD [facility] LAB Blood Bank BLOOD SPECIMEN / Unknown Venipuncture / Unknown 04/01/2024 3:15 PM GEOSCIENCE PROFESSOR 04/01/2024 3:20 PM GEOSCIENCE PROFESSOR José Sauer MD LAB - BLOOD BANK ORD ERABLES Performing Organization Address City/[facility]/ZIP Co de Phone Number [facility] [address] [place] [id number] [phone] * CBC W AUTO DIFFERENTIAL (04/01/2024 3:15 PM [facility]) [facility] WBC 8.0 4.0 - 10.7 x10E9/L 04/01/2024 3:23 PM [facility] RBC Count 4.18 3.90 - 5.20 x10E12/L 04/01/2024 3:23 PM [facility] Hemoglobin 12.2 11.9 - 15.8 g/dL 04/01/2024 3:23 PM [facility] Hematocrit 36.9 34.8 - 46.1 % 04/01/2024 3:23 PM [facility] MCV 88.3 80.0 - 98.0 fL 04/01/2024 3:23 PM [facility] MCH 29.2 26.7 - 33.6 pg 04/01/2024 3:23 PM [facility] MCHC 33.1 31.7 - 36.3 g/dL 04/01/2024 3:23 PM [facility] RDW-CV 13.4 11.3 - 14.8 % 04/01/2024 3:23 PM [facility] Platelet Count 272 150 - 420 x10E9/L 04/01/2024 3:23 PM [facility] MPV 9.3 7.8 - 11.4 fL 04/01/2024 3:23 PM [facility] Neutrophil % 69.3 41.0 - 74.0 % 04/01/2024 3:23 PM [facility] Lymphocyte % 21.0 17.0 - 47.0 % 04/01/2024 3:23 PM [facility] Monocyte % 6.5 3.0 - 11.0 % 04/01/2024 3:23 PM [facility] Eosinophil % 2.4 0.0 - 7.0 % 04/01/2024 3:23 PM [facility] Basophil % 0.5 0.0 - 1.6 % 04/01/2024 3:23 PM [facility] Immature Granulocytes % 0.3 0.0 - 1.0 % 04/01/2024 3:23 PM [facility] Neutrophil Absolute 5.55 1.60 - 7.50 x10E9/L 04/01/2024 3:23 PM [facility] Lymphocyte Absolute 1.68 1.00 - 4.40 x10E9/L 04/01/2024 3:23 PM [facility] Monocyte Absolute 0.52 0.15 - 1.00 x10E9/L 04/01/2024 3:23 PM [facility] Eosinophil Absolute 0.19 0.00 - 0.60 x10E9/L 04/01/2024 3:23 PM [facility] Basophil Absolute 0.04 0.00 - 0.13 x10E9/L 04/01/2024 3:23 PM [facility] Blood BLOOD SPECIMEN / Unknown Venipuncture / Unknown 04/01/2024 3:15 PM GEOSCIENCE PROFESSOR 04/01/2024 3:19 PM [facility] José Sauer MD LAB - HEMATOLOGY ORD ERABLES [facility] [address] [place] [address] [phone] * (ABNORMAL) BASIC METABOLIC PANEL (CALCIUM TOTAL) (04/01/2024 3:15 PM GEOSCIENCE PROFESSOR) BUN 15 7 - 26 mg/dL 04/01/2024 3:45 PM [facility] Creatinine 0.98(H) 0.56 - 0.96 mg/dL 04/01/2024 3:45 PM [facility] Sodium 142 136 - 145 mmol/L 04/01/2024 3:45 PM [facility] Potassium 3.8 3.5 - 4.5 mmol/L 04/01/2024 3:45 PM [facility] Chloride 106 98 - 107 mmol/L 04/01/2024 3:45 PM [facility] CO2 27 22 - 29 mmol/L 04/01/2024 3:45 PM [facility] Glucose 117(H) 70 - 99 mg/dL 04/01/2024 3:45 PM [facility] Calcium 9.5 8.4 - 10.2 mg/dL 04/01/2024 3:45 PM [facility] Anion Gap 9 6 - 16 04/01/2024 3:45 PM [facility] BUN/Creatinine Ratio 15 7 - 23 04/01/2024 3:45 PM [facility] Osmolality Calculated 296(H) 275 - 295 mOsm/kg 04/01/2024 3:45 PM [facility] eGFR by CKD-EPI 59(L) >=90 mL/min/1.7 3 m2 04/01/2024 3:45 PM [facility] Blood BLOOD SPECIMEN / Unknown Venipuncture / Unknown 04/01/2024 3:15 PM GEOSCIENCE PROFESSOR 04/01/2024 3:19 PM GEOSCIENCE PROFESSOR José Sauer MD LAB - CHEMISTRY ANNABEL GONZALEZ Performing Organization Address [facility]/ZIP Co de Phone Number [address] [address], [facility] [phone] * LIPASE BLOOD (04/01/2024 3:15 PM GEOSCIENCE PROFESSOR) Lipase 12 8 - 78 U/L 04/01/2024 3:45 PM [facility] Blood BLOOD SPECIMEN / Unknown Venipuncture / Unknown 04/01/2024 3:15 PM GEOSCIENCE PROFESSOR 04/01/2024 3:19 PM GEOSCIENCE PROFESSOR Narrative [facility] - 04/01/2024 3:45 PM GEOSCIENCE PROFESSOR Lipase results from the [employer] Alinity analyzer may not be comparable with other methodologies. José Sauer MD LAB - CHEMISTRY ANNABEL GONZALEZ Performing Organization Address City/[facility]/ZIP Co de Phone Number [address] [address], [place] [phone] * ALCOHOL ETHYL BLOOD (04/01/2024 3:15 PM GEOSCIENCE PROFESSOR) Ethanol (mg/dL) <10 <10 mg/dL 3:45 PM [facility] Ethanol Calculated (g/dL) <0.010 <=0.010 g/dL 04/01/2024 3:45 PM GEOSCIENCE PROFESSOR [facility] Blood BLOOD SPECIMEN / Unknown Venipuncture / Unknown 04/01/2024 3:15 PM GEOSCIENCE PROFESSOR 04/01/2024 3:19 PM GEOSCIENCE PROFESSOR Narrative [facility] - 04/01/2024 3:45 PM GEOSCIENCE PROFESSOR Ethanol Interp <10: None Detected. Depression of VESSEL SCRAPPER: >100 mg/dl Potentially Critical: >250 mg/dl Potentially [...] Sauer MD LAB - CHEMISTRY ANNABEL GONZALEZ [facility] [address] [place] [id number], [facility] [phone] * XR PELVIS 1 OR 2VW (04/01/2024 3:15 PM GEOSCIENCE PROFESSOR) Anatomical Region Laterality Modality Pelvis Digital Radiogra phy 04/01/2024 4:35 PM GEOSCIENCE PROFESSOR Impressions 04/01/2024 8:31 PM GEOSCIENCE PROFESSOR IMPRESSION: No acute displaced fracture or dislocation of pelvis is identified. Report dictated by Gerardo Manzo MD (vice president sales). IVito MD have personally reviewed and interpreted this examination/study. > Interpreting Provider: Vito Roldan MD on 04/01/2024 8:31 PM Narrative 04/01/2024 8:31 PM GEOSCIENCE PROFESSOR EXAMINATION: XR PELVIS 1 OR 2VW DATE/TIME OF EXAM: 04/01/2024 3:15 PM, LOCATION [facility] HISTORY: Trauma Fracture suspected COMPARISON: No [...] DATE/TIME OF EXAM: 04/01/2024 3:15 PM, LOCATION [facility] HISTORY: Trauma Fracture suspected COMPARISON: No [...] pelvis is identified. Report dictated by Gerardo Manoz MD (vice president sales). Vito Montejo MD have personally reviewed and interpreted this examination/study. > Interpreting Provider: Vito Roldan MD on 04/01/2024 8:31 PM José Sauer MD DIAGNOSTIC IMAGING O RDERABLES * XR CHEST 1VW PORTABLE (04/01/2024 3:14 PM GEOSCIENCE PROFESSOR) Anatomical Region Laterality Modality Chest Digital Radiogra phy 04/01/2024 4:36 PM GEOSCIENCE PROFESSOR Narrative 04/01/2024 8:30 PM GEOSCIENCE PROFESSOR PROCEDURE: XR CHEST 1VW PORTABLE, DATE/TIME OF EXAM: 04/01/2024 3:14 PM, [facility] INDICATION: Trauma ADDITIONAL CLINICAL INFORMATION: Ordering Provider Reason For Exam: Comparison: Same day CT chest abdomen and pelvis FINDINGS/IMPRESSION: There is no focal consolidation, pleural effusion, or pneumothorax. The cardiomediastinal silhouette is normal for portable technique. No displaced fractures visualized. Report dictated by Gerardo Manzo MD (vice president sales). Vito Montejo MD have personally reviewed and interpreted this examination/study. > Interpreting Provider: Vito Roldan MD on 04/01/2024 8:30 PM Procedure Note Vito Roldan MD - 04/01/2024 PROCEDURE: XR CHEST 1VW PORTABLE, DATE/TIME OF EXAM: 04/01/2024 3:14 PM, LOCATION [facility] INDICATION: Trauma ADDITIONAL CLINICAL INFORMATION: Ordering Provider Reason For Exam: Comparison: Same day CT chest abdomen and pelvis FINDINGS/IMPRESSION: There is no focal consolidation, pleural effusion, or pneumothorax. The cardiomediastinal silhouette is normal for portable technique. Nodisplaced fractures visualized. Report dictated by Gerardo Manzo MD (vice president sales). IVito MD have personally reviewed and interpreted this examination/study. > Interpreting Provider: Vito Roldan MD on 04/01/2024 8:30 PM José Sauer MD DIAGNOSTIC IMAGING O RDERABLES from Last 3 Months Care Teams Patient Registration Supervisor Relationship Specialty [place] [address] [facility] [address] [place] [address] PCP - General Internal Medicine 02/12/18 [place] [address] [phone] Internal Medicine 02/12/18
[2024-05-15 11:08] LABS: Alanine Aminotransferase 30 U/L (6-35); Albumin Level 4.2 g/dL (3.5-5.1); Alkaline Phosphatase 79 U/L (38-126); Anion Gap 8 mmol/L (4-12); Aspartate Amino Transferase 27 U/L (14-36); Bilirubin,Total 0.5 mg/dL (0.2-1.3); Blood Urea Nitrogen 16 mg/dL (7-17); Calcium 9.5 mg/dL (8.4-10.2); Carbon Dioxide 31 mmol/L (22-30); Chloride 103 mmol/L (98-107); Cholesterol 191 mg/dL (0-200); Estimated Glomerular Filt Rate 52; Glucose 102 mg/dL (65-110); HDL Direct 54 mg/dL; Potassium 4.4 mmol/L (3.4-5.0); Sodium 142 mmol/L (137-145); Triglycerides 94 mg/dL (<150)
[2024-05-15 11:19] LABS: LDL Cholesterol Direct 94 mg/dL
== END 2024-05-15 10:09 | disposition home or self-care (01) ==
PROVIDERS: PCP Family Medicine; Visit Provider Internal Medicine Cardiovascular Disease
DX: E78.2 Mixed hyperlipidemia (principal)
CPT/HCPCS: 36415; 80053; 80061

== ENCOUNTER 2024-10-09 08:33 | Outpatient (CLI) | payer MEDICARE, SELFPAY ==
--- OUTSIDE RECORDS SUMMARY | 2024-10-09 08:39 | XMS_ITS | Clinical Summary ---
Author Organization [facility] Address [address] [place] [address] Care Team Providers Care Gate Operator Name Role Phone Unavailable Primary Care Provider Unavailabl e Social History Tobacco Use Types Packs/Day Years Used Date Smoking Tobacco: Never Assessed Comments Unknown Sex and Gender Information Value Date Recorded Sex Assigned at Not on file Legal Sex Female 5:30 PM CDT Gender Identity Not on file Sexual Orientation Not on file Plan of Treatment Health Maintenance Due Date Last Done Comments Hepatitis C 12/18/1963 DTaP, Tdap and Td Vaccines ( 1 - Tdap) 1964 Pneumococcal Vaccine: 50+ Ye ars (1 of 1 - PCV) 12/18/1995 Zoster Vaccines (1 of 2) 12/18/1995 Annual Medicare Wellness Visit 2010 Dexa Scan (General) 2010 RSV Immunization or 60+ Years (1 - 1-dose 75+ series) 2020 COVID-19 Vaccine ( - 2023-2 5 season) 2023 PHQ-2 (Physician [place]) 04/01/2024 Meningococcal B Vaccine Aged Out No l onger eligible based on patient's age to complete this topic Meningococcal Vaccine Aged Out No ruth daniele eligible based on patient's age to complete this topic RSV Immunizations Under 20 Months Aged Out No longer eligible based on patient's age to complete this topic Insurance [facility]
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
--- OUTSIDE RECORDS SUMMARY | 2024-10-09 08:40 | XMS_ITS | Patient Health Record ---
Author Organization [facility] Address [address] [place], [place] [address] Care Team Providers Care Discovery Guide Name Role Phone Maikelguy KENDRA Unavailable [phone] Chaparro Malcolm Unavailable Unavailable Reason For Referral No Information Plan Of Treatment No Information Insurance Providers Payer Name Payer Address Payer Phone Subscriber Number Group Number Insured Name Patient Relationship to Insured Coverage Start Date Coverage End Date [facility] [address] [place] [address] [phone] [id number] MARIIA LOUIS Self - patient is the insured
--- OUTSIDE RECORDS SUMMARY | 2024-10-09 08:40 | XMS_ITS | Encounter Summary ---
Author Organization [facility] Address [address] [place] [address] Care Team Providers Care Landscape Supervisor Name Role Phone Dana Martinez MD Unavailable [phone] Dana Martinez MD Primary Care Provider [phone] Encounter Details Date Type Department Care Team (Late st Contact Info) Description 10/10/2022 Lab Requisition [facility] - DermPath Lab [address] [place] [address] Violeta Dixon PA-C [address] [place] [address] Neoplasm of uncertain behavior of skin Social History Tobacco Use Types Packs/Day Years Used Date Smoking Tobacco: Never Assessed Comments Unknown Sex and Gender Information Value Date Recorded Sex Assigned at Not on file Legal Sex Female 2:37 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 Gender Identity Not on file Sexual Orientation Not on file documented as of this encounter Plan of Treatment Not on file documented as of this encounter Procedures Procedure Name Priority Date/Time Associated Diagnosis Comments DERMATOPATHOLOGY Routine 10/10/2022 12:0 0 AM CDT Neoplasm of uncertain behavior of skin documented in this encounter Results * DERMATOPATHOLOGY (10/10/2022 12:00 AM CDT) Case Report Dermatopathology Report Case: [id number] Authorizing Provider: Violeta Dixon, Collected: 10/10/2022 12:00 AM ROXANNE Ordering Location: [facility] DermPath Lab Received: 10/12/2022 08:56 AM Pathologist: Nati Ko MD Specimen: Skin, nasal root 1:05 PM CDT DERMATOPATHOLOGY LABORATORY Final Diagnosis Specimen A. SKIN, nasal root: HYPERPLASTIC (HYPERTROPHIC) ACTINIC KERATOSIS; EXTENDING TO THE BASE OF THE SPECIMEN (L57.0) (see microscopic description and comment) 1:05 PM CDT DERMATOPATHOLOGY LABORATORY at 1305 CDT Clinical History Basal cell carcinoma vs Actinic [...] characteristic determined by the Dermatopathology Laboratory at [facility], directed by Dr. Nirav Goldman. These tests need not be, and therefore are not, approved by the [place] Food and Drug Administration. The tests are used for clinical purposes. Billing Codes Specimen Charges Stain Charges 98128 1 1:05 PM CDT DERMATOPATHOLOGY LABORATORY Embedded Images 1:05 PM CDT DERMATOPATHOLOGY LABORATORY Pathology/Cytolog y TISSUE SPECIMEN FROM SKIN / Unknown 10/10/2022 10/12/2022 8:56 AM CDT Violeta Dixon PA-C LAB - PATHOLOGY/CYTO LOGY ORDERABLES Final Result DERMATOPATHOLOGY LABORATORY [facility] - Department of Dermatology [facility] Specialized Medicine [address] [place] [address], [address] [phone] documented in this encounter Visit Diagnoses Diagnosis Neoplasm of uncertain behavior of skin documented in this encounter Care Teams Landscape Supervisor Relationship Specialty [place] [address] [address] PCP - General Internal Medicine 02/12/18 [place] [address] [address] Internal Medicine 02/12/18 documented as of this encounter
--- OUTSIDE RECORDS SUMMARY | 2024-10-09 08:40 | XMS_ITS | Clinical Summary ---
Author Organization [facility] Care Team Providers Care Fiberglass Fabricator Name Role Phone Unavailable Primary Care Provider [...]
--- OUTSIDE RECORDS SUMMARY | 2024-10-09 08:40 | XMS_ITS | Clinical Summary ---
Author Organization [facility] Address [address] [place] [phone] Phone Care Team Providers Care Back Line Cook Name Role Phone Dana Martinez MD Primary Care Provider [phone] Allergies No known active allergies Social History [...] 9:23 AM CDT Height 162.6 cm (5' 4) 09/04/2021 9:23 AM CDT Body Mass Index 30.9 09/04/2021 9:23 AM CDT Plan of Treatment Health Maintenance Due Date Last Done Comments DTAP/TDAP/TD VACCINES (1 - Tdap) 1964 ZOSTER VACCINE (1 of 2) 12/18/1995 OSTEOPOROSIS SCREENING 2010 PNEUMOCOCCAL VACCINE 50+ YEA RS (2 of 2 - PCV) 03/03/2013 03/03/2012 RSV VACCINE (60+ or ) (1 - 1-dose 75+ series) 2020 INFLUENZA VACCINE (#1) 2024 , 01/07/2017, 02/08/2016, Additional history exists Insurance [facility] Care Teams Back Line Cook Relationship Specialty [place] [address] [address] PCP - General Internal Medicine 02/13/18
[2024-10-09 09:09] LABS: Hematocrit 37.1 % (37.0-47.0); Hemoglobin 11.7 g/dL (12.0-15.0); Immature Granulocyte Percent A 0.0 % (0-0.5); Lymphocytes Absolute Auto 1.76 K/mm3 (0.9-3.2); Mean Corpuscular HGB Conc 31.5 g/dl (32-36); Mean Corpuscular Hemoglobin 28.6 pg (26-34); Mean Corpuscular Volume 90.7 fl (80-100); Nucleated Red Blood Cells Absolute Auto 0.000 K/mm3 (0.0-0.012); Nucleated Red Blood Cells Perc 0.0 % (0.0-0.2); Platelet Count Result 254 k/mm3 (150-375); Red Blood Count 4.09 M/mm3 (4.2-5.4); White Blood Count 4.5 K/mm3 (4.5-10.0)
[2024-10-09 09:29] LABS: Alanine Aminotransferase 16 U/L (6-35); Albumin Level 4.1 g/dL (3.5-5.1); Alkaline Phosphatase 52 U/L (38-126); Amylase 59 U/L (30-110); Anion Gap 8 mmol/L (4-12); Aspartate Amino Transferase 24 U/L (14-36); Bilirubin,Total 0.4 mg/dL (0.2-1.3); Blood Urea Nitrogen 15 mg/dL (7-17); Calcium 9.2 mg/dL (8.4-10.2); Carbon Dioxide 28 mmol/L (22-30); Chloride 105 mmol/L (98-107); Estimated Glomerular Filt Rate 52; Glucose 100 mg/dL (65-110); Lipase 42 U/L (23-300); Potassium 3.9 mmol/L (3.4-5.0); Sodium 141 mmol/L (137-145); Total Protein 7.1 g/dL (6.3-8.2)
[2024-10-09 13:07] LABS: Vitamin B12 266.0 pg/mL (239-931)
== END 2024-10-09 08:34 | disposition home or self-care (01) ==
PROVIDERS: PCP Family Medicine
DX: R10.11 Right upper quadrant pain (principal); R42 Dizziness and giddiness; E53.8 Deficiency of other specified B group vitamins; E55.9 Vitamin D deficiency, unspecified; K58.2 Mixed irritable bowel syndrome
CPT/HCPCS: 36415; 80053; 82150; 82607; 82746; 83690; 85025

== ENCOUNTER 2024-10-14 09:14 | Outpatient (CLI) | payer MEDICARE, SELFPAY ==
--- OUTSIDE RECORDS SUMMARY | 2024-10-14 09:17 | XMS_ITS | Clinical Summary ---
Author Organization [facility] Care Team Providers Care Karate Teacher Name Role Phone Unavailable Primary Care Provider [...]
--- OUTSIDE RECORDS SUMMARY | 2024-10-14 09:17 | XMS_ITS | Clinical Summary ---
Author Organization [facility] Address [address] [place] [address] Care Team Providers Care Decorative Engraver Apprentice Name Role Phone Unavailable Primary Care Provider [...] - 2023-2 5 season) 2023 PHQ-2 (Physician [place]) 04/01/2024 Meningococcal B Vaccine Aged Out No l onger eligible based on patient's age to complete this topic Meningococcal Vaccine Aged Out No ruth daniele eligible based on patient's age to complete this topic RSV Immunizations Under 20 Months Aged Out No longer eligible based on patient's age to complete this topic Insurance [facility] [place] [address]
--- OUTSIDE RECORDS SUMMARY | 2024-10-14 09:17 | XMS_ITS | Clinical Summary ---
Author Organization [facility] Address [address] [facility] [place] [address] Care Team Providers Care Travograph Operator Name Role Phone Dana Martinez MD Unavailable [phone] Dana Martinez MD Primary Care Provider [phone] Source Comments [facility],non-owned Affiliates and Associated Physician Practices is amultiple site organization consisting of ambulatory clinics and hospital sitesin [place], [place], [place] and [place]. This disclosure is being madepursuant to the Care Everywhere program and may not contain all information available regarding this patient. Last updated 17.[facility] [employer] Allergies No known active allergies Medications * [...] on file Legal Sex Female 2:37 PM GLAZING MACHINE OPERATOR Gender Identity Not on file Sexual Orientation Not on file Last Filed Vital Signs Vital Sign Reading Time Taken Comments Blood Pressure 147/88 04/01/2024 2:51 PM GLAZING MACHINE OPERATOR Pulse 73 04/01/2024 2:53 PM GLAZING MACHINE OPERATOR Temperature 36.2 C (97.2 F) 04/01/2024 2:50 PM GLAZING MACHINE OPERATOR Respiratory Rate 15 04/01/2024 2:53 PM GLAZING MACHINE OPERATOR Oxygen Saturation 97% 04/01/2024 2:53 PM GLAZING MACHINE OPERATOR Inhaled Oxygen Concentration - - Weight 81.6 kg (180 lb) 04/01/2024 2:50 PM GLAZING MACHINE OPERATOR Height 172.7 cm (5' 8) 04/01/2024 2:50 PM GLAZING MACHINE OPERATOR Body Mass Index 27.37 04/01/2024 2:50 PM GLAZING MACHINE OPERATOR Plan of Treatment Health Maintenance Due Date [...] Date of Phone Billing Address Personal/Family [address] [place] [address] SELF PAY NO INSURANCE Member Subscriber Plan / Payer (Ef fective for All Dates) Name:Mariia Morgan Member ID:Not on file Relation to Subscriber:Not on file Name:MARIIA MORGAN Subscriber ID:Not on file Address: [address] [place] [address] Payer ID:Not on file Group ID:Not on file Type:Self Pay Address: [place], [place] * Guarantor: MARIIA MORGAN Account Type Relation to Patient Date of Phone Billing Address Personal/Family [address] [place] [address] SELF PAY NO INSURANCE Member Subscriber Plan / Payer (Ef fective for All Dates) Name:Mariia Morgan Member ID:Not on file Relation to Subscriber:Not on file Name:MARIIA MORGAN Subscriber ID:Not on file Address: [place] [address] Payer ID:Not on file Group ID:Not on file Type:Self Pay Address: [place], [place] * Guarantor: MARIIA MORGAN Account Type Relation to Patient Date of Phone Billing Address Personal/Family [address] [place] [phone] SELF PAY NO INSURANCE Member Subscriber Plan / Payer (Ef fective for All Dates) Name:Mariia Morgan Member ID:Not on file Relation to Subscriber:Not on file Name:MARIIA MORGAN Subscriber ID:Not on file Address: [address] [place] [phone] Payer ID:Not on file Group ID:Not on file Type:Self Pay Address: [place], [place] Care Teams Travograph Operator Relationship Specialty [place] [address] [phone] PCP - General Internal Medicine 02/12/18 [place] [address] [phone] Internal Medicine 02/12/18
--- OUTSIDE RECORDS SUMMARY | 2024-10-14 09:17 | XMS_ITS | Patient Health Record ---
Author Organization [facility] Address [address] [place], [place] [address] Care Team Providers Care Billet Sawyer Name Role Phone Maikelguy KENDRA Unavailable [phone] Chaparro Malcolm Unavailable Unavailable Reason For Referral No Information Plan Of Treatment No Information Insurance Providers Payer Name Payer Address Payer Phone Subscriber Number Group Number Insured Name Patient Relationship to Insured Coverage Start Date Coverage End Date [facility] [address] [place] [address] [phone] [id number] MARIIA LOUIS Self - patient is the insured
--- OUTSIDE RECORDS SUMMARY | 2024-10-14 09:17 | XMS_ITS | Encounter Summary ---
Author Organization [facility] Address [address] [place] [address] Care Team Providers Care Wet Process Miller Head Assistant Name Role Phone Dana Martinez MD Unavailable [phone] Dana Martinez MD Primary Care Provider [phone] Encounter Details Date Type Department Care Team (Late st Contact Info) Description 10/10/2022 Lab Requisition [facility] - DermPath Lab [address] [place] [address] Violeta Dixon PA-C [address] [place] [address] Neoplasm of uncertain behavior of skin Social History Tobacco Use Types Packs/Day Years Used Date Smoking Tobacco: Never Assessed Comments Unknown Sex and Gender Information Value Date Recorded Sex Assigned at Not on file Legal Sex Female 2:37 PM AGENCY RECRUITER Gender Identity Not on file Sexual Orientation Not on file documented as of this encounter Plan of Treatment Not on file documented as of this encounter Procedures Procedure Name Priority Date/Time Associated Diagnosis Comments DERMATOPATHOLOGY Routine 10/10/2022 12:0 0 AM CDT Neoplasm of uncertain behavior of skin documented in this encounter Results * DERMATOPATHOLOGY (10/10/2022 12:00 AM CDT) Case Report Dermatopathology Report Case: [id number] Authorizing Provider: Violeta Dixon, Collected: 10/10/2022 12:00 AM ROXANNE Ordering Location: [facility] Lab Received: 10/12/2022 08:56 AM Pathologist: [...] characteristic determined by the Dermatopathology Laboratory at [facility], directed by Dr. Nirav Goldman. These tests need not be, and therefore are not, approved by the [place] Food and Drug Administration. The tests are used for clinical purposes. Billing Codes Specimen Charges Stain Charges 43346 1 1:05 PM CDT DERMATOPATHOLOGY LABORATORY Embedded Images 1:05 PM CDT DERMATOPATHOLOGY LABORATORY Pathology/Cytolog y TISSUE SPECIMEN FROM SKIN / Unknown 10/10/2022 10/12/2022 8:56 AM CDT Violeta Dixon PA-C LAB - PATHOLOGY/CYTO LOGY ORDERABLES Final Result DERMATOPATHOLOGY LABORATORY [facility] - Department of Dermatology [facility] Specialized Medicine [address] [place] [address], [address] [phone] documented in this encounter Visit Diagnoses Diagnosis Neoplasm of uncertain behavior of skin documented in this encounter Care Teams Wet Process Miller Head Assistant Relationship Specialty [place] [address] [address] PCP - General Internal Medicine 02/12/18 [place] [address] [address] Internal Medicine 02/12/18 documented as of this encounter
[2024-10-14 10:02] LABS: Iron 84 ug/dL (37-170)
[2024-10-14 10:11] LABS: Percent Iron Saturation 29 % (20-50)
[2024-10-14 10:43] LABS: Ferritin 46.30 ng/mL (11.1-264)
== END 2024-10-14 09:15 | disposition home or self-care (01) ==
PROVIDERS: PCP Family Medicine
DX: R79.89 Other specified abnormal findings of blood chemistry (principal); E55.9 Vitamin D deficiency, unspecified
CPT/HCPCS: 36415; 82306; 82728; 83540; 83550

== ENCOUNTER 2024-11-20 09:52 | Outpatient (CLI) | payer MEDICARE, SELFPAY ==
--- OUTSIDE RECORDS SUMMARY | 2024-11-20 09:58 | XMS_ITS | Clinical Summary ---
Author Organization [facility] Care Team Providers Care Sign Writer Hand Name Role Phone Unavailable Primary Care Provider [...] Due Date Last Done Comments Hepatitis C Virus (HCV) Screening 1945 TdaP Immunization 1945 Pneumococcal Immunization (5 0+ years) (2 of 2 - PCV) 03/03/2013 03/03/2012 Zoster Immunization (2 of 3) 04/04/2016 02/08/2016 Respiratory Syncytial Virus (RSV) Immunization (Adult) (1 - 1-dose 75+ series) 2020 SARS-COV-2 Immunization (3 - season) 2023 06/04/2020, 05/12/2020 Influenza Immunization (#1) 11/30/202401/01, 01/07/2017, 01/14/2014 Hepatitis B Immunization Aged Out No longer eligible based on patient's age to complete this topic Human Papillomavirus (HPV) Immunization Aged Out No longer eligible b ased on patient's age to complete this topic Meningococcal Immunization (ACWY) Aged Out No longer eligible b ased on patient's age to complete this topic Rotavirus Immunization Aged Out No lo nger eligible based on patient's age to complete this topic
--- OUTSIDE RECORDS SUMMARY | 2024-11-20 09:58 | XMS_ITS | Clinical Summary ---
Author Organization [facility] Address [address] [facility] [place] [address] Care Team Providers Care Cardiology Physician Name Role Phone Dana Martinez MD Unavailable [phone] Dana Martinez MD Primary Care Provider [phone] Source Comments [facility],non-owned Affiliates and Associated Physician Practices is amultiple site organization consisting of ambulatory clinics and hospital sitesin [place], [place], [place] and [place]. This disclosure is being madepursuant to the Care Everywhere program and may not contain all information available regarding this patient. Last updated 17.[facility] [employer] Allergies No known active allergies Medications * [...] on file Legal Sex Female 2:37 PM CLERGY MEMBER Gender Identity Not on file Sexual Orientation Not on file Last Filed Vital Signs Vital Sign Reading Time Taken Comments Blood Pressure 147/88 04/01/2024 2:51 PM CLERGY MEMBER Pulse 73 04/01/2024 2:53 PM CLERGY MEMBER Temperature 36.2 C (97.2 F) 04/01/2024 2:50 PM CLERGY MEMBER Respiratory Rate 15 04/01/2024 2:53 PM CLERGY MEMBER Oxygen Saturation 97% 04/01/2024 2:53 PM CLERGY MEMBER Inhaled Oxygen Concentration - - Weight 81.6 kg (180 lb) 04/01/2024 2:50 PM CLERGY MEMBER Height 172.7 cm (5' 8) 04/01/2024 2:50 PM CLERGY MEMBER Body Mass Index 27.37 04/01/2024 2:50 PM CLERGY MEMBER Plan of Treatment Health Maintenance Due Date [...] Date of Phone Billing Address Personal/Family [address] [place] [address] SELF PAY NO INSURANCE Member Subscriber Plan / Payer (Ef fective for All Dates) Name:Mariia Morgan Member ID:Not on file Relation to Subscriber:Not on file Name:MARIIA MORGAN Subscriber ID:Not on file Address: [address] [place] [address] Payer ID:Not on file Group ID:Not on file Type:Self Pay Address: [place], [place] * Guarantor: MARIIA MORGAN Account Type Relation to Patient Date of Phone Billing Address Personal/Family [address] [place] [address] SELF PAY NO INSURANCE Member Subscriber Plan / Payer (Ef fective for All Dates) Name:Mariia Morgan Member ID:Not on file Relation to Subscriber:Not on file Name:MARIIA MORGAN Subscriber ID:Not on file Address: [place] [address] Payer ID:Not on file Group ID:Not on file Type:Self Pay Address: [place], [place] * Guarantor: MARIIA MORGAN Account Type Relation to Patient Date of Phone Billing Address Personal/Family [address] [place] [phone] SELF PAY NO INSURANCE Member Subscriber Plan / Payer (Ef fective for All Dates) Name:Mariia Morgan Member ID:Not on file Relation to Subscriber:Not on file Name:MARIIA MORGAN Subscriber ID:Not on file Address: [address] [place] [phone] Payer ID:Not on file Group ID:Not on file Type:Self Pay Address: [place], [place] Care Teams Cardiology Physician Relationship Specialty [place] [address] [phone] PCP - General Internal Medicine 02/12/18 [place] [address] [phone] Internal Medicine 02/12/18
--- OUTSIDE RECORDS SUMMARY | 2024-11-20 09:58 | XMS_ITS | Patient Health Record ---
Author Organization [facility] Address [address] [place], [place] [address] Care Team Providers Care Motorsports Technician Name Role Phone Maikelguy KENDRA Unavailable [phone] Chaparro Malcolm Unavailable Unavailable Reason For Referral No Information Plan Of Treatment No Information Insurance Providers Payer Name Payer Address Payer Phone Subscriber Number Group Number Insured Name Patient Relationship to Insured Coverage Start Date Coverage End Date [facility] [address] [place] [address] [id number] MARIIA LOUIS Self - patient is the insured
--- OUTSIDE RECORDS SUMMARY | 2024-11-20 09:58 | XMS_ITS | Encounter Summary ---
Author Organization [facility] Address [address] [place] [address] Care Team Providers Care Concrete Mixer Truck Driver Name Role Phone Dana Martinez MD Unavailable [phone] Dana Martinez MD Primary Care Provider [phone] Encounter Details Date Type Department Care Team (Late st Contact Info) Description 10/10/2022 Lab Requisition [facility] - DermPath Lab [address] [place] [address] Violeta Dixon PA-C [address] [place] [address] Neoplasm of uncertain behavior of skin Social History Tobacco Use Types Packs/Day Years Used Date Smoking Tobacco: Never Assessed Comments Unknown Sex and Gender Information Value Date Recorded Sex Assigned at Not on file Legal Sex 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 Gender Identity Not on file Sexual Orientation Not on file documented as of this encounter Plan of Treatment Not on file documented as of this encounter Procedures Procedure Name Priority Date/Time Associated Diagnosis Comments DERMATOPATHOLOGY Routine 10/10/2022 12:0 0 AM CDT Neoplasm of uncertain behavior of skin documented in this encounter Results * DERMATOPATHOLOGY (10/10/2022 12:00 AM CDT) Case Report Dermatopathology Report Case: [id number] Authorizing Provider: Violeta Dixon, Collected: 10/10/2022 12:00 AM ROXANNE Ordering Location: [facility] DermPath Lab Received: 10/12/2022 08:56 AM Pathologist: [...] by the Dermatopathology Laboratory at [facility], directed by Dr. Nirav Goldman. These tests need not be, and therefore are not, approved by the [place] Food and Drug Administration. The tests are used for clinical purposes. Billing Codes Specimen Charges Stain Charges 50282 1 1:05 PM CDT DERMATOPATHOLOGY LABORATORY Embedded Images 1:05 PM CDT DERMATOPATHOLOGY LABORATORY Pathology/Cytolog y TISSUE SPECIMEN FROM SKIN / Unknown 10/10/2022 10/12/2022 8:56 AM CDT Violeta Dixon PA-C LAB - PATHOLOGY/CYTO LOGY ORDERABLES Final Result DERMATOPATHOLOGY LABORATORY [facility] - Department of Dermatology [facility] Specialized Medicine [address] [place] [address], [address] [phone] documented in this encounter Visit Diagnoses Diagnosis Neoplasm of uncertain behavior of skin documented in this encounter Care Teams Concrete Mixer Truck Driver Relationship Specialty [place] [address] [address] PCP - General Internal Medicine 02/12/18 [place] [address] [address] Internal Medicine 02/12/18 documented as of this encounter
--- OUTSIDE RECORDS SUMMARY | 2024-11-20 09:58 | XMS_ITS | Clinical Summary ---
Author Organization [facility] Address [address] [place] [address] Care Team Providers Care Procurement Technician Name Role Phone Unavailable Primary Care Provider [...] - 2023-2 5 season) 2023 PHQ-2 (Physician Elim Ira) 04/01/2024 Meningococcal B Vaccine Aged Out No l onger eligible based on patient's age to complete this topic Meningococcal Vaccine Aged Out No ruth daniele eligible based on patient's age to complete this topic RSV Immunizations Under 20 Months Aged Out No longer eligible based on patient's age to complete this topic Insurance [facility]
--- OUTSIDE RECORDS SUMMARY | 2024-11-20 09:58 | XMS_ITS | Clinical Summary ---
Author Organization Count Includes [facility] Address [address] [place] [phone] Phone Care Team Providers Care Tablet Machine Operator Name Role Phone Dana Martinez MD Primary Care Provider [phone] Allergies No known active allergies Social History [...] , 01/07/2017, 02/08/2016, Additional history exists [facility] Care Teams Tablet Machine Operator Relationship Specialty [place] [address] [address] PCP - General Internal Medicine 02/13/18
[2024-11-20 10:09] LABS: Hematocrit 38.9 % (37.0-47.0); Hemoglobin 12.3 g/dL (12.0-15.0); Mean Corpuscular HGB Conc 31.6 g/dl (32-36); Mean Corpuscular Hemoglobin 28.7 pg (26-34); Mean Corpuscular Volume 90.7 fl (80-100); Platelet Count Result 277 k/mm3 (150-375); Red Blood Count 4.29 M/mm3 (4.2-5.4); White Blood Count 6.8 K/mm3 (4.5-10.0)
[2024-11-20 10:32] LABS: Alanine Aminotransferase 17 U/L (6-35); Albumin Level 4.2 g/dL (3.5-5.1); Alkaline Phosphatase 64 U/L (38-126); Anion Gap 7 mmol/L (4-12); Aspartate Amino Transferase 23 U/L (14-36); Bilirubin,Total 0.5 mg/dL (0.2-1.3); Blood Urea Nitrogen 14 mg/dL (7-17); CRP 1.0 mg/dL (<1.0); Calcium 9.5 mg/dL (8.4-10.2); Carbon Dioxide 28 mmol/L (22-30); Chloride 104 mmol/L (98-107); Estimated Glomerular Filt Rate 52; Glucose 115 mg/dL (65-110); Potassium 4.2 mmol/L (3.4-5.0); Sodium 139 mmol/L (137-145); Total Protein 7.5 g/dL (6.3-8.2)
== END 2024-11-20 09:53 | disposition home or self-care (01) ==
PROVIDERS: PCP Family Medicine; Visit Provider Nurse Practitioner
DX: R19.7 Diarrhea, unspecified (principal)
CPT/HCPCS: 36415; 80053; 85027; 86140

== ENCOUNTER 2024-11-23 12:33 | Outpatient (CLI) | payer MEDICARE, SELFPAY ==
--- OUTSIDE RECORDS SUMMARY | 2024-11-23 12:40 | XMS_ITS | Clinical Summary ---
Author Organization [facility] Address [address] [place] [address] Care Team Providers Care Grade Recorder Name Role Phone Unavailable Primary Care Provider [...] - 2023-2 5 season) 2023 PHQ-2 (Physician Kaguy[place]) 04/01/2024 Meningococcal B Vaccine Aged Out No l onger eligible based on patient's age to complete this topic Meningococcal Vaccine Aged Out No ruth daniele eligible based on patient's age to complete this topic RSV Immunizations Under 20 Months Aged Out No longer eligible based on patient's age to complete this topic Insurance [facility]
--- OUTSIDE RECORDS SUMMARY | 2024-11-23 12:40 | XMS_ITS | Clinical Summary ---
Author Organization [facility] Care Team Providers Care Commercial Real Estate Appraiser Name Role Phone Unavailable Primary Care Provider [...]
--- OUTSIDE RECORDS SUMMARY | 2024-11-23 12:40 | XMS_ITS | Encounter Summary ---
Author Organization [facility] Address [address] [address] Care Team Providers Care V Groove Cutter Name Role Phone Dana Martinez MD Unavailable [phone] Dana Martinez MD Primary Care Provider [phone] Encounter Details Date Type Department Care Team (Late st Contact Info) Description 10/10/2022 Lab Requisition [facility] - DermPath Lab [address] [place] [address] Violeta Dixon PA-C [address] [place] [address] Neoplasm of uncertain behavior of skin Social History Tobacco Use Types Packs/Day Years Used Date Smoking Tobacco: Never Assessed Comments Unknown Sex and Gender Information Value Date Recorded Sex Assigned at Not on file 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 Gender Identity Not on file Sexual Orientation Not on file documented as of this encounter Plan of Treatment Not on file documented as of this encounter Procedures Procedure Name Priority Date/Time Associated Diagnosis Comments DERMATOPATHOLOGY Routine 10/10/2022 12:0 0 AM CDT Neoplasm of uncertain behavior of skin documented in this encounter Results * DERMATOPATHOLOGY (10/10/2022 12:00 AM CDT) Case Report Dermatopathology Report Case: [id number] Authorizing Provider: Violeta Dixon, Collected: 10/10/2022 12:00 AM ROXANNE Ordering Location: [facility] DermPath Lab Received: 10/12/2022 08:56 AM [...] characteristic determined by the Dermatopathology Laboratory at [facility], directed by Dr. Nirav Goldman. These tests need not be, and therefore are not, approved by the [place] Food and Drug Administration. The tests are used for clinical purposes. Billing Codes Specimen Charges Stain Charges 07253 1 1:05 PM CDT DERMATOPATHOLOGY LABORATORY Embedded Images 1:05 PM CDT DERMATOPATHOLOGY LABORATORY Pathology/Cytolog y TISSUE SPECIMEN FROM SKIN / Unknown 10/10/2022 10/12/2022 8:56 AM CDT Violeta Dixon PA-C LAB - PATHOLOGY/CYTO LOGY ORDERABLES Final Result DERMATOPATHOLOGY LABORATORY [facility] - Department of Dermatology [facility] Specialized Medicine [address] [place] [address], [address] [phone] documented in this encounter Visit Diagnoses Diagnosis Neoplasm of uncertain behavior of skin documented in this encounter Care Teams V Groove Cutter Relationship Specialty [place] [address] [address] PCP - General Internal Medicine 02/12/18 [place] [address] [address] Internal Medicine 02/12/18 documented as of this encounter
--- OUTSIDE RECORDS SUMMARY | 2024-11-23 12:40 | XMS_ITS | Clinical Summary ---
Author Organization [facility] Address [address] [facility] [place] [address] Care Team Providers Care Coordinating Producer Name Role Phone Dana Martinez MD Unavailable [phone] Dana Martinez MD Primary Care Provider [phone] Source Comments [facility],non-owned Affiliates and Associated Physician Practices is amultiple site organization consisting of ambulatory clinics and hospital sitesin [place], [place], [place] and [place]. This disclosure is being madepursuant to the Care Everywhere program and may not contain all information available regarding this patient. Last updated 17.[facility] [employer] Allergies No known active allergies Medications * [...] on file Legal Sex Female 2:37 PM VERIFY REP Gender Identity Not on file Sexual Orientation Not on file Last Filed Vital Signs Vital Sign Reading Time Taken Comments Blood Pressure 147/88 04/01/2024 2:51 PM VERIFY REP Pulse 73 04/01/2024 2:53 PM VERIFY REP Temperature 36.2 C (97.2 F) 04/01/2024 2:50 PM VERIFY REP Respiratory Rate 15 04/01/2024 2:53 PM VERIFY REP Oxygen Saturation 97% 04/01/2024 2:53 PM VERIFY REP Inhaled Oxygen Concentration - - Weight 81.6 kg (180 lb) 04/01/2024 2:50 PM VERIFY REP Height 172.7 cm (5' 8) 04/01/2024 2:50 PM VERIFY REP Body Mass Index 27.37 04/01/2024 2:50 PM VERIFY REP Plan of Treatment Health Maintenance Due Date [...] Date of Phone Billing Address Personal/Family [address] [place] [address] SELF PAY NO INSURANCE Member Subscriber Plan / Payer (Ef fective for All Dates) Name:Mariia Morgan Member ID:Not on file Relation to Subscriber:Not on file Name:MARIIA MORGAN Subscriber ID:Not on file Address: [address] [place] [address] Payer ID:Not on file Group ID:Not on file Type:Self Pay Address: [place], [place] * Guarantor: MARIIA MORGAN Account Type Relation to Patient Date of Phone Billing Address Personal/Family [address] [place] [address] SELF PAY NO INSURANCE Member Subscriber Plan / Payer (Ef fective for All Dates) Name:Mariia Morgan Member ID:Not on file Relation to Subscriber:Not on file Name:MARIIA MORGAN Subscriber ID:Not on file Address: [place] [address] Payer ID:Not on file Group ID:Not on file Type:Self Pay Address: [place], [place] * Guarantor: MARIIA MORGAN Account Type Relation to Patient Date of Phone Billing Address Personal/Family [address] [place] [address] SELF PAY NO INSURANCE Member Subscriber Plan / Payer (Ef fective for All Dates) Name:Mariia Morgan Member ID:Not on file Relation to Subscriber:Not on file Name:MARIIA MORGNA Subscriber ID:Not on file Address: [address] [place] [phone] Payer ID:Not on file Group ID:Not on file Type:Self Pay Address: [place], [place] Care Teams Coordinating Producer Relationship Specialty [place] [address] [phone] PCP - General Internal Medicine 02/12/18 [place] [address] [phone] Internal Medicine 02/12/18
--- OUTSIDE RECORDS SUMMARY | 2024-11-23 12:40 | XMS_ITS | Clinical Summary ---
Author Organization [facility] Address [address] [place] [phone] Phone Care Team Providers Care Explosives Mixer Operator Name Role Phone Dana Martinez MD Primary Care Provider [phone] Allergies No known active allergies Social History [...] 01/07/2017, 02/08/2016, Additional history exists Insurance [facility] Care Teams Explosives Mixer Operator Relationship Specialty [place] [address] [address] PCP - General Internal Medicine 02/13/18
--- OUTSIDE RECORDS SUMMARY | 2024-11-23 12:40 | XMS_ITS | Patient Health Record ---
Author Organization [facility] Address [address] [place], [place] [address] Care Team Providers Care Auto Damage Trainee Name Role Phone Maikelguy KENDRA Unavailable [phone] Chaparro Malcolm Unavailable Unavailable Reason For Referral No Information Plan Of Treatment No Information Insurance Providers Payer Name Payer Address Payer Phone Subscriber Number Group Number Insured Name Patient Relationship to Insured Coverage Start Date Coverage End Date [facility] [address] [place] [address] [id number] MARIIA LOUIS Self - patient is the insured
[2024-11-23 14:52] LABS: Toxigenic C. Diff NEGATIVE (NEGATIVE)
[2024-11-25 07:09] LABS: Calprotectin, Fecal 300 ug/g (0-120)
== END 2024-11-23 12:34 | disposition home or self-care (01) ==
PROVIDERS: PCP Family Medicine; Visit Provider Nurse Practitioner
DX: R19.7 Diarrhea, unspecified (principal)
CPT/HCPCS: 83993; 87045; 87046; 87427; 87493

== ENCOUNTER 2024-12-14 11:10 | Emergency (ER) | payer MEDICARE, SELFPAY ==
[2024-12-14] VITALS (8 sets, daily range): BP systolic 140–178; BP diastolic 68–82; PULSE 61–70; RESP 13–22; TEMP 37.1; O2SAT 94–100
--- NOTE | ~2024-12-14 | CT_ITS ---
EXAMINATION: CT abdomen pelvis w con DATE: 12/14/2024 13:36 INDICATION: Chronic diarrhea TECHNIQUE: Computed tomography (CT) of the abdomen and pelvis was performed with 100 mL Omnipaque-350 intravenous contrast. Automated exposure control and iterative reconstruction technique were employed. The dose-length product was 664.99 mGy-cm. COMPARISON: None FINDINGS: Calcified nodule at the basilar right lower lobe a few small scattered hepatic and splenic calcifications, all consistent with old granulomatous disease. Heart size is normal. No pericardial or pleural effusion. Small sliding-type hiatal hernia. 9 mm fluid attenuation hepatic cyst in segment IVb of the liver. 2.5 cm hypodense lesion in segment 2 of the liver and 1.4 cm lesion in segment 5 of the liver, both with somewhat irregular margins and appearance suggestive but not diagnostic of hemangiomas. Multiple small calcified gallstones the dependent aspect of the normal gallbladder with no abnormal gallbladder wall thickening or pericholecystic inflammatory stranding. Fatty infiltration of the head and uncinate process of the pancreas which is otherwise unremarkable. Bilateral adrenal glands and kidneys are normal. Bilateral adnexal cyst measuring 3.7 cm on the right and 1.6 cm on the left. Bladder and anteverted uterus are normal. There are few scattered colonic diverticula predominantly along the sigmoid colon without adjacent inflammatory stranding to suggest diverticulitis. Fluid throughout the colon consistent with nonspecific diarrhea. Small bowel and appendix are normal. No free intraperitoneal gas or fluid. No pathologically enlarged abdominal or pelvic lymphadenopathy. Severe lumbosacral spondylosis with mild spondylosis and more cephalad lumbar and lower thoracic spine. IMPRESSION: 1. Fluid throughout the colon consistent with nonspecific diarrhea which is of indeterminate etiology. No other acute intra-abdominal/pelvic process. 2. Cholelithiasis. 3. A couple indeterminate hepatic lesions measuring 2.5 cm and 1.4 cm with appearance suggestive of but not diagnostic of hemangiomas. Would recommend follow-up multiphase pre and postcontrast MRI or CT. 4. Small sliding-type hiatal hernia. Reviewed, dictated and finalized at location A. IMPRESSION: 1. Fluid throughout the colon consistent with nonspecific diarrhea which is of indeterminate etiology. No other acute intra-abdominal/pelvic process. 2. Cholelithiasis. 3. A couple indeterminate hepatic lesions measuring 2.5 cm and 1.4 cm with appe arance suggestive of but not diagnostic of hemangiomas. Would recommend follow- up multiphase pre and postcontrast MRI or CT. 4. Small sliding-type hiatal hernia.
[2024-12-14 11:45] LABS: Hematocrit 34.4 % (37.0-47.0); Hemoglobin 11.4 g/dL (12.0-15.0); Immature Granulocyte Percent A 0.2 % (0-0.5); Lymphocytes Absolute Auto 1.46 K/mm3 (0.9-3.2); Mean Corpuscular HGB Conc 33.1 g/dl (32-36); Mean Corpuscular Hemoglobin 29.0 pg (26-34); Mean Corpuscular Volume 87.5 fl (80-100); Nucleated Red Blood Cells Absolute Auto 0.000 K/mm3 (0.0-0.012); Nucleated Red Blood Cells Perc 0.0 % (0.0-0.2); Platelet Count Result 302 k/mm3 (150-375); Red Blood Count 3.93 M/mm3 (4.2-5.4); White Blood Count 5.1 K/mm3 (4.5-10.0)
[2024-12-14 12:07] LABS: Alanine Aminotransferase 12 U/L (6-35); Albumin Level 4.0 g/dL (3.5-5.1); Alkaline Phosphatase 51 U/L (38-126); Anion Gap 9 mmol/L (4-12); Aspartate Amino Transferase 24 U/L (14-36); Bilirubin,Total 0.6 mg/dL (0.2-1.3); Blood Urea Nitrogen 12 mg/dL (7-17); Calcium 8.9 mg/dL (8.4-10.2); Carbon Dioxide 26 mmol/L (22-30); Chloride 103 mmol/L (98-107); Estimated CRCL calculation 46 ml/min; Estimated Glomerular Filt Rate > 60; Glucose 107 mg/dL (65-110); Lipase 22 U/L (23-300); Potassium 3.0 mmol/L (3.4-5.0); Sodium 138 mmol/L (137-145); Total Protein 7.0 g/dL (6.3-8.2)
[2024-12-14 12:45] LABS: Add Urine Microscopic? YES; Appearance Urine Clear (Clear); Glucose Urine UA Negative (Negative); Leukocyte Esterase Ur Negative LEU/UL (Negative); Need Manual Microscopic Reviewed; Nitrate Urine Negative (Negative); Non Pathogenic Casts 0-2; Specific Grav Ur 1.018 (1.001-1.035)
--- OUTSIDE RECORDS SUMMARY | 2024-12-14 13:12 | XMS_ITS | Clinical Summary ---
Author Organization [facility] Address [address] [place] [place] [address] Care Team Providers Care School Traffic Guard Name Role Phone Dana Martinez MD Unavailable [phone] Dana Martinez MD Primary Care Provider [phone] Source Comments [facility],non-owned Affiliates and Associated Physician Practices is amultiple site organization consisting of ambulatory clinics and hospital sitesin [place], [place], [place] and [place]. This disclosure is being madepursuant to the Care Everywhere program and may not contain all information available regarding this patient. Last updated 17.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 Gender Identity Not on file Sexual Orientation Not on file Last Filed Vital Signs Vital Sign Reading Time Taken Comments Blood Pressure 147/88 04/01/2024 2:51 PM HEALTH OFFICER Pulse 73 04/01/2024 2:53 PM HEALTH OFFICER Temperature 36.2 C (97.2 F) 04/01/2024 2:50 PM HEALTH OFFICER Respiratory Rate 15 04/01/2024 2:53 PM HEALTH OFFICER Oxygen Saturation 97% 04/01/2024 2:53 PM HEALTH OFFICER Inhaled Oxygen Concentration - - Weight 81.6 kg (180 lb) 04/01/2024 2:50 PM HEALTH OFFICER Height 172.7 cm (5' 8) 04/01/2024 2:50 PM HEALTH OFFICER Body Mass Index 27.37 04/01/2024 2:50 PM HEALTH OFFICER Plan of Treatment Health Maintenance Due Date Last Done Comments BONE DENSITY TESTING 1945 MEDICARE AWV 12 MONTHS 1945 HEPATITIS C SCREENING 12/13/1963 DTAP/TDAP/TD VACCINES (1 - Tdap) 1964 PNEUMOCOCCAL VACCINE 50+ (1 of 1 - PCV) 12/18/1995 ZOSTER VACCINE (1 of 2) 12/18/1995 Respiratory Syncytial Virus (RSV) Vaccine Pt: or over 60 yrs (1 - 1-dose 75+ series) 2020 DEPRESSION SCREENING 04/01/2024 COVID-19 VACCINE ( season) 2024 02/13/2021, 06/04/2020, 06/01/2020, Additional history exists INFLUENZA VACCINE (#1) 2024 3, 03/04/2022, 02/20/2021, [...] Date of Phone Billing Address Personal/Family [address] [place] [address] SELF PAY NO INSURANCE Member Subscriber Plan / Payer (Ef fective for All Dates) Name:Mariia Morgan Member ID:Not on file Relation to Subscriber:Not on file Name:MARIIA MORGAN Subscriber ID:Not on file Address: [address] [place] [address] Payer ID:Not on file Group ID:Not on file Type:Self Pay Address: [place], [place] * Guarantor: MARIIA MORGAN Account Type Relation to Patient Date of Phone Billing Address Personal/Family [address] [place] [address] SELF PAY NO INSURANCE Member Subscriber Plan / Payer (Ef fective for All Dates) Name:Mariia Morgan Member ID:Not on file Relation to Subscriber:Not on file Name:MARIIA MORGAN Subscriber ID:Not on file Address: [place] [address] Payer ID:Not on file Group ID:Not on file Type:Self Pay Address: [place], [place] * Guarantor: MARIIA MORGAN Account Type Relation to Patient Date of Phone Billing Address Personal/Family [address] [place] [address] SELF PAY NO INSURANCE Member Subscriber Plan / Payer (Ef fective for All Dates) Name:Mariia Morgan Member ID:Not on file Relation to Subscriber:Not on file Name:MARIIA MORGAN Subscriber ID:Not on file Address: [address] [place] [phone] Payer ID:Not on file Group ID:Not on file Type:Self Pay Address: [place], [place] Care Teams School Traffic Guard Relationship Specialty [place] [address] [phone] PCP - General Internal Medicine 02/12/18 [place] [address] [phone] Internal Medicine 02/12/18
--- OUTSIDE RECORDS SUMMARY | 2024-12-14 13:12 | XMS_ITS | Encounter Summary ---
Author Organization [facility] Address [address] [place] [address] Care Team Providers Care Cross Cut Saw Operator Name Role Phone Dana Martinez MD Unavailable [phone] Dana Martinez MD Primary Care Provider [phone] Encounter Details Date Type Department Care Team (Late st Contact Info) Description 10/10/2022 Lab Requisition [facility] - DermPath Lab [address] [place] [address] Violeta Dixon PA-C [address] [place] [address] Neoplasm of uncertain behavior of skin Social History Tobacco Use Types Packs/Day Years Used Date Smoking Tobacco: Never Assessed Comments Unknown Sex and Gender Information Value Date Recorded Sex Assigned at Not on file 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 Nirav Goldman. These tests need not be, and therefore are not, approved by the [place] Food and Drug Administration. The tests are used for clinical purposes. Billing Codes Specimen Charges Stain Charges 24148 1 1:05 PM CDT DERMATOPATHOLOGY LABORATORY Embedded Images 1:05 PM CDT DERMATOPATHOLOGY LABORATORY Pathology/Cytolog y TISSUE SPECIMEN FROM SKIN / Unknown 10/10/2022 10/12/2022 8:56 AM CDT Violeta Dixon PA-C LAB - PATHOLOGY/CYTO LOGY ORDERABLES Final Result DERMATOPATHOLOGY LABORATORY [facility] - Department of Dermatology [facility] Specialized Medicine [address] [place] [address], [address] [phone] documented in this encounter Visit Diagnoses Diagnosis Neoplasm of uncertain behavior of skin documented in this encounter Care Teams Cross Cut Saw Operator Relationship Specialty [place] [address] [address] PCP - General Internal Medicine 02/12/18 [place] [address] [address] Internal Medicine 02/12/18 documented as of this encounter
--- OUTSIDE RECORDS SUMMARY | 2024-12-14 13:12 | XMS_ITS | Clinical Summary ---
Author Organization [facility] Care Team Providers Care Master Barber Name Role Phone Unavailable Primary Care Provider [...]
--- OUTSIDE RECORDS SUMMARY | 2024-12-14 13:12 | XMS_ITS | Patient Health Record ---
Author Organization [facility] Address [address] [place], [place] [id number] Care Team Providers Care Advertising Rep Name Role Phone Maikelguy KENDRA Unavailable [phone] Chaparro Malcolm Unavailable Unavailable Reason For Referral No Information Plan Of Treatment No Information Insurance Providers Payer Name Payer Address Payer Phone Subscriber Number Group Number Insured Name Patient Relationship to Insured Coverage Start Date Coverage End Date [facility] [address] [place] [address] [phone] [id number] MARIIA LOUIS Self - patient is the insured
--- OUTSIDE RECORDS SUMMARY | 2024-12-14 13:12 | XMS_ITS | Clinical Summary ---
Author Organization [facility] Address [address] [place] [phone] Phone Care Team Providers Care Plant Attendant Or Assistant Operator Name Role Phone Dana Martinez MD Primary Care Provider [phone] Allergies No known active allergies Social History [...] , 01/07/2017, 02/08/2016, Additional history exists [facility] Care Teams Plant Attendant Or Assistant Operator Relationship Specialty [place] [address] [address] PCP - General Internal Medicine 02/13/18
--- OUTSIDE RECORDS SUMMARY | 2024-12-14 13:12 | XMS_ITS | Clinical Summary ---
Author Organization [facility] Address [address] [place] [address] Care Team Providers Care Respiratory Therapy Technician Name Role Phone Unavailable Primary Care [...] Years (1 - 1-dose 75+ series) 2020 PHQ-2 (Physician [place]) 04/01/2024 COVID-19 Vaccine (1 - 2023-2 5 season) 2024 Meningococcal B Vaccine Aged Out No l onger eligible based on patient's age to complete this topic Meningococcal Vaccine Aged Out No ruth daniele eligible based on patient's age to complete this topic RSV Immunizations Under 20 Months Aged Out No longer eligible based on patient's age to complete this topic Insurance [facility]
[2024-12-14 15:30] LABS: Toxigenic C. Diff POSITIVE (NEGATIVE)
--- NOTE | 2024-12-14 15:30 | ED.NAVMDI ---
HPI - Nausea/Vomiting/Diarrhea General Chief complaint: Nausea/Vomiting/Diarrhea Stated complaint: Diarrhea Time Seen by Provider: 12/14/24 12:01 History of Present Illness HPI Narrative: Patient is a 78-year-old female who presents ER with diarrhea. She reports it has been ongoing for 6 weeks. Watery and causes incontinence at times. She will get up to 3 times a night to have watery diarrhea. She has abdominal cramping. No fevers or chills or sweats. No recent antibiotic usage. She you saw GI he did outpatient stool studies are all negative. It appears her C diff study was canceled however. She was unaware of this. Related Data Home Medications ?Medication ?Instructions ?Recorded ?Confirmed ?Last Taken ?Type aspirin 81 mg tablet,delayed 81 mg PO .QD 04/16/22 11/19/24 09/16/23 History release (Adult Low Dose Aspirin) fluticasone propionate 50 1 spray intranasal DAILY 12/13/22 11/19/24 09/15/23 History mcg/actuation nasal spray,suspension Held on 01/28/24. Instructions: Bryce has on hold ascorbic acid (vitamin C) 1,000 mg 1 g PO DAILY 10/24/23 11/19/24 Unknown History capsule cholecalciferol (vitamin D3) 50 50 mcg PO DAILY 10/24/23 11/19/24 Unknown History mcg (2,000 unit) capsule Allergies Allergy/AdvReac Type Severity Reaction Status Date / Time No Known Allergies Allergy Verified 11/19/24 11:27 Review of Systems Review of Systems: All systems reviewed & are unremarkable except as noted in HPI and below Constitutional: Constitutional: Reports no additional constitutional complaints ENT: Reports system reviewed and no additional complaints, except as documented Cardiovascular: Cardiovascular: Reports no additional cardiovascular complaints Respiratory: Respiratory: Reports no additional respiratory complaints Gastrointestinal: Gastrointestinal: Reports no additional gastrointestinal complaints [facility] Past Medical History Medical History History of shingles Family hx of colon cancer Establishing care with new doctor, encounter for Numbness and tingling in right hand Mixed hyperlipidemia Headache Chronic GERD Colitis Anxiety Surgical History Surgical History History of tubal ligation History of shoulder surgery Family History Family History Father Cerebrovascular accident Mother Heart disease Carcinoma of colon Sibling Cancer MVC (motor vehicle collision) Sibling No problems noted. Other Asthma Depression Diabetes mellitus Social History Social History Smoking status: Never smoker Second hand tobacco smoke exposure: Yes Alcohol intake: current Drinks per week: 2 Substance use: never Substance use type: does not use Do You Feel Safe in your Home?: Yes Lack of Transportation: No Lack of Food: Never True Current Housing: I Have Housing Concerned About Future Housing: No Difficulty Paying Gas/Electric Bills: YES Difficulty Paying for Meds: No Currently Unemployed: No Education: High School Diploma/GED Difficulty w/ Childcare or Family Care: No Living arrangements: with family Occupation/Education: retired 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 HEAD: Normocephalic, atraumatic. ENT: Mucous membranes moist. CHEST: Clear to auscultation. No respiratory distress. HEART: Regular rate and rhythm. Normal peripheral pulses. ABDOMEN: Soft, diffuse discomfort w/o guarding, nondistended, hyperactive bowel sounds. EXTREMITIES: Normal range of motion. No edema. SKIN: Warm, dry, no rash. NEURO: Alert and oriented x3. PSYCH: Normal mood and affect. Course Course Emergency Course: Patient resting comfortably. Informed of lab results. GI consulted. Recommends outpatient treatment with vancomycin. Care coordination contacted and this is an affordable medication for the patient. Discharge. Vital Signs Vital signs: Vital Signs Temperature 98.7 F 12/14/24 11:25 Pulse Rate 70 12/14/24 11:25 Respiratory Rate 16 12/14/24 11:25 Blood Pressure 140/72 12/14/24 11:25 Pulse Oximetry 97 12/14/24 11:25 Oxygen Delivery Room Air 12/14/24 11:25 Temperature 98.7 F 12/14/24 11:25 Pulse Rate 64 12/14/24 16:01 Respiratory Rate 19 12/14/24 16:01 Blood Pressure 178/82 H 12/14/24 16:01 Pulse Oximetry 98 12/14/24 16:01 Oxygen Delivery Room Air 12/14/24 11:25 MDM - Nausea/Vomiting/Diarrhea Lab Data 12/14/24 11:34 12/14/24 11:34 Labs: Lab Results 12/14/24 12/14/24 12/14/24 Range/Units 11:34 12:04 14:06 WBC 5.1 (4.5-10.0) K/mm3 RBC 3.93 L (4.2-5.4) M/mm3 Hgb 11.4 L (12.0-15.0) g/dL Hct 34.4 L (37.0-47.0) % MCV 87.5 (80-100) fl MCH 29.0 (26-34) pg MCHC 33.1 (32-36) g/dl RDW 14.1 (11.5-14.5) % Plt Count 302 (150-375) k/mm3 MPV 9.5 (7.4-10.4) fl Immature Gran % (Auto) 0.2 (0-0.5) % Neut % (Auto) 61.3 (45.5-73.1) % Lymph % (Auto) 28.5 (18.3-44.2) % Mclean % (Auto) 8.6 H (2.6-8.5) % Eos % (Auto) 0.6 (0-4.4) % Baso % (Auto) 0.8 (0.2-1.2) % Lymph # (Auto) 1.46 (0.9-3.2) K/mm3 Mclean # (Auto) 0.4 (0.1-0.6) K/mm3 Eos # (Auto) 0.0 (0-0.3) K/mm3 Baso # (Auto) 0.0 (0.0-0.1) K/mm3 Abs Immat Gran (auto) 0.01 (0.00-0.031) K/mm3 Absolute Neuts (auto) 3.2 (1.3-6.7) K/mm3 Absolute Nucleated RBC 0.000 (0.0-0.012) K/mm3 Nucleated RBC % 0.0 (0.0-0.2) % Sodium 138 (137-145) mmol/L Potassium 3.0 L (3.4-5.0) mmol/L Chloride 103 (98-107) mmol/L Carbon Dioxide 26 (22-30) mmol/L Anion Gap 9 (4-12) mmol/L BUN 12 (7-17) mg/dL Creatinine 0.86 (0.7-1.0) mg/dL Estim Creat Clear Calc 46 ml/min Estimated GFR > 60 (59 - ) Glucose 107 (65-110) mg/dL Calcium 8.9 (8.4-10.2) mg/dL Total Bilirubin 0.6 (0.2-1.3) mg/dL AST 24 (14-36) U/L ALT 12 (6-35) U/L Alkaline Phosphatase 51 (38-126) U/L Total Protein 7.0 (6.3-8.2) g/dL Albumin 4.0 (3.5-5.1) g/dL Lipase 22 L (23-300) U/L Urine Color Dark yellow (Yellow) Urine Appearance Clear (Clear) Urine pH 6.0 (5.0-9.0) Ur Specific [place]hler 1.018 (1.001-1.035) Urine Protein Trace (Negative) mg/dL Urine Glucose (UA) Negative (Negative) mg/dL Urine Ketones Trace H (Negative) mg/dL Ur Blood (Man) Negative (Negative) Urine Nitrate Negative (Negative) Urine Bilirubin Negative (Negative) Urine Urobilinogen 1.0 (<2.0) mg/dL Add Ur Microanalysis Reviewed Leukocyte Esterase Rfl Negative (Negative) PADDY/UL Urine RBC 0-2 (0-2) /hpf Urine WBC 0-5 (0-3) /hpf Ur Squamous Epith Cells Occasional (Few) /hpf Urine Bacteria None seen /hpf Urine Casts 0-2 C. difficile (PCR) Positive A* (NEGATIVE) Imaging Data Radiologist's impression: ITS Impressions Abdomen/Pelvis CT 12/14/24 13:54 IMPRESSION: 1. Fluid throughout the colon consistent with nonspecific diarrhea which is of indeterminate etiology. No other acute intra-abdominal/pelvic process. 2. Cholelithiasis. 3. A couple indeterminate hepatic lesions measuring 2.5 cm and 1.4 cm with appearance suggestive of but not diagnostic of hemangiomas. Would recommend follow-up multiphase pre and postcontrast MRI or CT. 4. Small sliding-type hiatal hernia. Discharge Plan Discharge Clinical Impression: C. difficile colitis, Hypokalemia Patient Disposition: Home Condition: Stable Instructions: Antibiotic Form Additional Instructions: Please drink plenty of fluids at home. Return to the emergency department if you develop high fevers, have persistent severe abdominal pain, or have bloody stools or vomit, as these could be signs of a more serious medical emergency. Return to the emergency department if you are unable to keep down liquids because of severe nausea/vomiting. Patient Language: Romanian Prescriptions: New vancomycin 125 mg capsule 125 mg PO QID 14 Days Qty: 56 0RF potassium chloride [K-Tab] 20 mEq tablet extended release 20 meq PO BID Qty: 10 0RF No Action ascorbic acid (vitamin C) 1,000 mg capsule 1 g PO DAILY cholecalciferol (vitamin D3) 50 mcg (2,000 unit) capsule 50 mcg PO DAILY esomeprazole magnesium [Nexium] 40 mg capsule,delayed release(DR/EC) 40 mg PO DAILY 90 Days Qty: 90 3RF alprazolam 0.25 mg tablet 0.25 mg PO BID PRN (Reason: anxiety) Qty: 60 1RF aspirin [Adult Low Dose Aspirin] 81 mg tablet,delayed release (DR/EC) 81 mg PO .QD fluticasone propionate 50 mcg/actuation spray,suspension 1 spray intranasal DAILY Rx Instructions: administer into each nostril azelastine 137 mcg (0.1 %) aerosol,spray 1 spray intranasal Q12H Qty: 30 2RF Rx Instructions: administer into each nostril ondansetron 8 mg tablet,disintegrating 8 mg PO Q8H Qty: 10 0RF meclizine 25 mg tablet 25 mg PO TID PRN (Reason: dizziness) Qty: 30 1RF gabapentin 300 mg capsule 300 mg PO TID Qty: 270 1RF zolpidem 5 mg tablet 5 mg PO QHS Qty: 30 5RF escitalopram oxalate [Lexapro] 20 mg tablet 20 mg PO .QD Qty: 90 1RF atorvastatin 10 mg tablet 10 mg PO .QD Qty: 90 1RF Follow-up/Referrals: Patrick Chavez MD [Primary Care Provider, Family Practice] Sanju Santiago MD [Physician, Gastroenterology] - 1 Week
[2024-12-14] MEDS: VANCOMYCIN HCL 125 MG ORAL CAPSULE PO (16:25)
[2024-12-14] MEDS: POTASSIUM CHLORIDE 20 MEQ ER TABLET 40 MEQ PO (16:25)
== END 2024-12-14 16:45 | disposition home or self-care (01) ==
PROVIDERS: Student in an Organized Health Care Education/Training Program; Emergency Provider Emergency Medicine; PCP Family Medicine
DX: A04.72 Enterocolitis due to Clostridium difficile, not specified as recurrent (principal); E87.6 Hypokalemia; E78.2 Mixed hyperlipidemia
CPT/HCPCS: 36415; 74177; 80053; 81001; 83690; 85025; 87493; 99284; A9270; Q9967

== ENCOUNTER 2024-12-24 09:13 | Outpatient (CLI) | payer MEDICARE, SELFPAY ==
[2024-12-24 09:48] LABS: Hematocrit 37.2 % (37.0-47.0); Hemoglobin 11.8 g/dL (12.0-15.0); Immature Granulocyte Percent A 0.2 % (0-0.5); Lymphocytes Absolute Auto 1.46 K/mm3 (0.9-3.2); Mean Corpuscular HGB Conc 31.7 g/dl (32-36); Mean Corpuscular Hemoglobin 29.0 pg (26-34); Mean Corpuscular Volume 91.4 fl (80-100); Nucleated Red Blood Cells Absolute Auto 0.000 K/mm3 (0.0-0.012); Nucleated Red Blood Cells Perc 0.0 % (0.0-0.2); Platelet Count Result 297 k/mm3 (150-375); Red Blood Count 4.07 M/mm3 (4.2-5.4); White Blood Count 4.6 K/mm3 (4.5-10.0)
[2024-12-24 10:05] LABS: Anion Gap 6 mmol/L (4-12); Blood Urea Nitrogen 15 mg/dL (7-17); Calcium 9.3 mg/dL (8.4-10.2); Carbon Dioxide 32 mmol/L (22-30); Chloride 101 mmol/L (98-107); Estimated Glomerular Filt Rate 56; Glucose 113 mg/dL (65-110); Potassium 3.7 mmol/L (3.4-5.0); Sodium 139 mmol/L (137-145)
[2024-12-25 06:08] LABS: Cytomegalovirus (CMV) Ab, IgG >10.00 U/mL (0.00-0.59); Cytomegalovirus (CMV) Ab, IgM <30.0 AU/mL (0.0-29.9)
[2024-12-25 15:09] LABS: EBV Nuclear Antigen Ab, IgG 459.0 U/mL (0.0-17.9)
== END 2024-12-24 09:14 | disposition home or self-care (01) ==
LOC: ANHLAB 09:15
PROVIDERS: PCP Family Medicine
DX: R79.89 Other specified abnormal findings of blood chemistry (principal); D72.821 Monocytosis (symptomatic); E87.6 Hypokalemia
CPT/HCPCS: 36415; 80048; 85025; 86644; 86645; 86664; 86665